=== PATIENT | female | born 1955 | race Caucasian/White ===

== ENCOUNTER 2019-10-25 16:33 | Outpatient (CLI) | payer OTHER, SELFPAY ==
--- NOTE | ~2019-10-25 | MM_ITS ---
EXAMINATION: MM screening [facility] BI w matt HISTORY: Screening TECHNIQUE: Craniocaudal and mediolateral oblique 3-D tomosynthesis images were obtained and synthetic 2-D images were generated. CAD analysis was submitted and interpreted. COMPARISON: Comparison to multiple prior studies sequentially, with oldest reviewed study dated 09/12. BREAST PARENCHYMAL COMPOSITION: There are scattered areas of fibroglandular density. FINDINGS: There is a developing asymmetry in the upper-outer quadrant of the left breast. The right b reast is stable without evidence for malignancy. IMPRESSION: 1. Developing left breast asymmetry. 2. Additional mammographic views and possible breast ultrasound are recommended. BI-RADS Category 0: Incomplete: Needs additional imaging evaluation. Reviewed, dictated and finalized at location A. IMPRESSION: 1. Developing left breast asymmetry. 2. Additional mammographic views and possible breast ultrasound are recommended . BI-RADS Category 0: Incomplete: Needs additional imaging evaluation.
== END 2019-10-25 16:34 | disposition home or self-care (01) ==
PROVIDERS: PCP Family Medicine; Visit Provider Family Medicine
DX: Z12.31 Encounter for screening mammogram for malignant neoplasm of breast (principal); R92.8 Other abnormal and inconclusive findings on diagnostic imaging of breast
CPT/HCPCS: 77063; 77067

== ENCOUNTER 2019-11-13 12:46 | Outpatient (CLI) | payer OTHER, SELFPAY ==
--- NOTE | ~2019-11-13 | MM_ITS ---
EXAMINATION: MM diagnostic [facility] LT w matt HISTORY: Left breast asymmetry on screening mammogram TECHNIQUE: Additional 3-D tomosynthesis images of the left breast were performed and synthetic 2-D im ages were generated. CAD analysis was submitted and interpreted. COMPARISON: 10/25/2019, 10/03/2018, 09/27/2017 FINDINGS: No persistent asymmetry is identified with spot compression views of the breast. There is a return to normal baseline fibroglandular appearance. IMPRESSION: 1. No mammographic evidence of malignancy. 2. Recommend routine screening mammography in one year. BI-RADS Category 1: Negative Reviewed, dictated and finalized at location A.
== END 2019-11-13 12:47 | disposition home or self-care (01) ==
LOC: ANHIMG 12:49
PROVIDERS: PCP Family Medicine; Visit Provider Family Medicine
DX: R92.8 Other abnormal and inconclusive findings on diagnostic imaging of breast (principal)
CPT/HCPCS: 77061; 77065; G0279

== ENCOUNTER 2019-12-31 17:31 | Outpatient (CLI) | payer OTHER, SELFPAY ==
--- NOTE | ~2019-12-31 | XR_ITS ---
EXAMINATION: XR knee LT min 4V EXAM DATE: 12/31/2019 18:05 INDICATION: Chronic left knee pain. TECHNIQUE: Left knee lateral, frontal AP, frontal PA tunnel, sunrise projections. Comparison is made to prior examination from 07/22/2014. FINDINGS: No evidence osteochondral defect or joint body in the left knee joint. There is moderate lateral tibiofemoral, mild patellofemoral compartment primary osteoarthritis. There is a small joint effusion. There are no acute fractures or dislocations identified. There is no subcutaneous gas. Th e soft tissue is unremarkable. There are no radiopaque foreign bodies. IMPRESSION: 1. Moderate left knee lateral tibiofemoral compartment osteoarthritis. 2. Small joint effusion. Reviewed, dictated and finalized at location A.
== END 2019-12-31 17:32 | disposition home or self-care (01) ==
PROVIDERS: PCP Family Medicine; Visit Provider Physician Assistant
DX: M25.562 Pain in left knee (principal); M17.12 Unilateral primary osteoarthritis, left knee; M25.462 Effusion, left knee
CPT/HCPCS: 73564

== ENCOUNTER 2020-12-29 14:44 | Outpatient (CLI) | payer OTHER, SELFPAY ==
--- NOTE | ~2020-12-29 | MM_ITS ---
EXAMINATION: MM screening [facility] BI w matt HISTORY: Screening TECHNIQUE: Craniocaudal and mediolateral oblique 3-D tomosynthesis images were obtained and synthetic 2-D images were generated. CAD analysis was submitted and interpreted. COMPARISON: Comparison to multiple prior studies sequentially, with oldest reviewed study dated 07/2015. BREAST PARENCHYMAL COMPOSITION: There are scattered areas of fibroglandular density. FINDINGS: There is no evidence of suspicious mass, calcification, or architectural distortion to sugg est malignancy in either breast. There has been no suspicious interval change. IMPRESSION: 1. No mammographic evidence of malignancy. 2. Recommend routine screening mammography in one year. BI-RADS Category 1: Negative Reviewed, dictated and finalized at location A.
--- NOTE | ~2020-12-29 | DEXA_ITS ---
Bone Density Report Name: Eulalia Lisa Age: 65 Sex: Female Ethnicity: White Date of : 1955 Indication: postmenopausal; hysterectomy; Referring Provider: Naif Ireland Study: Bone densitometry was performed. Exam Date: December 29, 2020 Accession number: [id number] Bone Density: Region BMD T-score Z-score Classification AP Spine (L1-L4) 0.965 -0.7 1.0 Normal Femoral Neck (Left) 0.588 -2.4 -0.9 Osteopenia Total Hip (Left) 0.762 -1.5 -0.3 Osteopenia Total Hip Bilateral Avg 0.761 -1.5 -0.3 Osteopenia Femoral Neck (Right) 0.606 -2.2 -0.7 Osteopenia Total Hip (Right) 0.758 -1.5 -0.3 Osteopenia World Health Organization criteria for BMD impression classify patients as: Normal (T-score at or above -1.0), Osteopenia (T-score between -1.0 and -2.5), or Osteoporosis (T-score at or below -2.5). 10-year Fracture Risk(1): Major Osteoporotic Fracture 11% Hip Fracture 1.8% Reported Risk Factors: [place] (), Neck BMD=0.588, BMI=29.7 (1) FRAX(R) Version 3.08. Fracture probability calculated for an untreated patient. Fracture probability may be lower if the patient has received treatment. Previous Exams: Region Exam Age BMD T-score BMD Change BMD Change Date g/cm2 vs Baseline vs Previous AP Spine(L1-L4) 12/29/2020 65 0.965 -0.7 -0.092(-8.7%)# -0.011(-1.2%)# 09/07/2012 56 0.977 -0.6 -0.081(-7.6%)# -0.081(-7.6%)# 01/04/2006 50 1.058 0.1 Total Hip(Left) 12/29/2020 65 0.762 -1.5 -0.227(-22.9%) -0.093(-10.9%) 09/07/2012 56 0.854 -0.7 -0.134(-13.6%) -0.134(-13.6%) 01/04/2006 50 0.988 0.4 Total Hip(Right) 12/29/2020 65 0.758 -1.5 -0.191(-20.2%) -0.094(-11.0%) 09/07/2012 56 0.851 -0.7 -0.098(-10.3%) -0.098(-10.3%) 01/04/2006 50 0.949 0.1 *Denotes significance at 95% confidence level, LSC for AP Spine = 0.022 g/cm2, LSC for Total Hip = 0.027 g/cm2 Clinical Information Provided by Patient: Has used the following medications: Calcium Has the following medical conditions: Hysterectomy Patient maximum height was 63 Menopause Age: 51 Drinks caffeinated beverages Onset of menses at age 16 Number of children 2 Impression: The patient has low bone mass, based on the Left Femoral Neck T-score. The patient has an estimated ten-year risk of hip fracture of 1.8% and an estimated ten-year risk of major fracture of 11%, based on the WHO FRAX algorithm. No significant bone loss was observed. Discussion: LORE
== END 2020-12-29 14:45 | disposition home or self-care (01) ==
LOC: ANHIMG 14:47
PROVIDERS: PCP Family Medicine; Visit Provider Family Medicine
DX: Z12.31 Encounter for screening mammogram for malignant neoplasm of breast (principal); Z78.0 Asymptomatic menopausal state; M85.851 Other specified disorders of bone density and structure, right thigh; M85.852 Other specified disorders of bone density and structure, left thigh
CPT/HCPCS: 77063; 77067; 77080

== ENCOUNTER 2022-01-19 15:52 | Outpatient (CLI) | payer OTHER, SELFPAY ==
--- NOTE | ~2022-01-19 | MM_ITS ---
EXAMINATION: MM screening [facility] BI w matt HISTORY: Screening TECHNIQUE: Craniocaudal and mediolateral oblique 3-D tomosynthesis images were obtained and synthetic 2-D images were generated. CAD analysis was submitted and interpreted. COMPARISON: Comparison to multiple prior studies sequentially, with oldest reviewed study dated 08/2016. BREAST PARENCHYMAL COMPOSITION: Breast composed of scattered areas of fibroglandular density FINDINGS: There is no evidence of suspicious mass, calcification, or architectural distortion to sugg est malignancy in either breast. There has been no suspicious interval change. IMPRESSION: 1. No mammographic evidence of malignancy. 2. Recommend routine screening mammography in one year. BI-RADS Category 1: Negative Reviewed, dictated and finalized at location A.
== END 2022-01-19 15:53 | disposition home or self-care (01) ==
PROVIDERS: PCP Emergency Medicine; Visit Provider Emergency Medicine
DX: Z12.31 Encounter for screening mammogram for malignant neoplasm of breast (principal)
CPT/HCPCS: 77063; 77067

== ENCOUNTER 2022-01-22 16:05 | Outpatient (CLI) | payer OTHER, SELFPAY ==
--- NOTE | ~2022-01-22 | US_ITS ---
EXAMINATION:US venous doppler LE LT INDICATION:Left leg edema TECHNIQUE: Multiple grayscale, color flow and Doppler images of the left lower extremity deep venous systems were obtained and reviewed. COMPARISON:No prior studies for comparison. FINDINGS: The common femoral, superficial femoral and popliteal veins demonstrate normal respiratory variation, augmentation and compressibility. Color flow is also seen within the posterior tibial, pe roneal, greater saphenous and profunda veins. There is a Ashby's cyst of the left popliteal fossa. IMPRESSION: 1: No lower extremity deep venous thrombosis. Reviewed, dictated and finalized at location A.
== END 2022-01-22 16:06 | disposition home or self-care (01) ==
LOC: ANHIMG 16:06
PROVIDERS: PCP Emergency Medicine; Visit Provider Emergency Medicine
DX: M79.89 Other specified soft tissue disorders (principal)
CPT/HCPCS: 93971

== ENCOUNTER → 2022-04-12 16:13 | Outpatient (CLI) | payer OTHER, SELFPAY ==
--- NOTE | ~2022-04-12 | XR_ITS ---
EXAMINATION: XR chest 2V DATE: 04/12/2022 16:23 INDICATION: One month of cough TECHNIQUE: PA and lateral views of the chest were obtained. COMPARISON: Chest radiograph dated 07/19/2008 FINDINGS: The lungs remain clear with no focal airspace opacities, pulmonary edema, pleural effusion or pneumot horax. The cardiomediastinal silhouette is normal. Mild thoracic spondylosis. IMPRESSION: 1. No acute cardiopulmonary disease. Reviewed, dictated and finalized at location B. FOOD ATTENDANT
== END ==
PROVIDERS: PCP Emergency Medicine; Visit Provider Emergency Medicine
DX: R05.3 Chronic cough (principal)
CPT/HCPCS: 71046

== ENCOUNTER → 2022-10-13 10:31 | Outpatient (CLI) | payer MEDICARE, SELFPAY ==
--- NOTE | ~2022-10-13 | US_ITS ---
US thyroid INDICATION: Nontoxic goiter TECHNIQUE: Real-time sonographic images of the thyroid gland were obtained. COMPARISON: No prior studies for comparison. FINDINGS: The right thyroid lobe measures 3.5 x 1.2 x 1.3 cm. The left thyroid lobe measures 3.2 x 1 x 1.2 cm. There is normal echotexture and echogenicity throughout the thyroid gland. In the left lob e there is a hypoechoic solid mass which is wider than tall, smoothly marginated measuring 10 x 8 x 7 mm, TR 4. Normal vascular flow is present. IMPRESSION: 1. Probable benign 1 cm left thyroid mass, TR 4. Follow-up ultrasound in 12 months recommended. Reviewed, dictated and finalized at location A. IMPRESSION: 1. Probable benign 1 cm left thyroid mass, TR 4. Follow-up ultrasound in 12 mo nt recommended.
== END ==
PROVIDERS: PCP Nurse Practitioner Family; Visit Provider Nurse Practitioner Family
DX: E04.9 Nontoxic goiter, unspecified (principal)
CPT/HCPCS: 76536

== ENCOUNTER 2022-11-30 09:35 | Outpatient (CLI) | payer MEDICARE, SELFPAY ==
[2022-11-30 13:05] LABS: Basophils Percent Auto 0.7 % (0.2-1.2); Eosinophils Absolute Auto 0.1 K/mm3 (0-0.3); Eosinophils Percent Auto 2.5 % (0-4.4); Hematocrit 41.8 % (37.0-47.0); Hemoglobin 13.9 g/dL (12.0-15.0); Immature Granulocyte Absolute 0.03 K/mm3 (0.00-0.031); Immature Granulocyte Percent A 0.7 % (0-0.5); Lymphocytes Absolute Auto 1.25 K/mm3 (0.9-3.2); Lymphocytes Percent Auto 28.2 % (18.3-44.2); Mean Corpuscular HGB Conc 33.3 g/dl (32-36); Mean Corpuscular Hemoglobin 33.3 pg (26-34); Mean Corpuscular Volume 100.2 fl (80-100); Mean Platelet Volume 11.5 fl (7.4-10.4); Monocytes Absolute Auto 0.5 K/mm3 (0.1-0.6); Monocytes Percent Auto 10.6 % (2.6-8.5); Neutrophils Absolute Auto 2.5 K/mm3 (1.3-6.7); Neutrophils Percent Auto 57.3 % (45.5-73.1); Platelet Count Result 223 k/mm3 (150-375); Red Blood Count 4.17 M/mm3 (4.2-5.4); Red Cell Distribution Width 12.8 % (11.5-14.5); White Blood Count 4.4 K/mm3 (4.5-10.0)
[2022-11-30 13:18] LABS: Alanine Aminotransferase 26 U/L (6-35); Albumin Level 4.3 g/dL (3.5-5.1); Alkaline Phosphatase 52 U/L (38-126); Anion Gap 8 mmol/L (8-16); Aspartate Amino Transferase 51 U/L (14-36); Bilirubin,Total 0.7 mg/dL (0.2-1.3); Blood Urea Nitrogen 15 mg/dL (7-17); Calcium 10.2 mg/dL (8.4-10.2); Carbon Dioxide 29 mmol/L (22-30); Chloride 102 mmol/L (98-107); Cholesterol 223 mg/dL (0-200); Estimated Glomerular Filt Rate > 60; Glucose 86 mg/dL (65-110); HDL Direct 61 mg/dL; Potassium 4.3 mmol/L (3.4-5.0); Sodium 139 mmol/L (137-145); Triglycerides 105 mg/dL (<150)
[2022-11-30 13:30] LABS: LDL Cholesterol Direct 119 mg/dL
[2022-11-30 13:40] LABS: Hemoglobin A1C 4.8 % (<5.7)
== END 2022-11-30 09:36 | disposition home or self-care (01) ==
PROVIDERS: PCP Nurse Practitioner Family; Visit Provider Nurse Practitioner Family
DX: I10 Essential (primary) hypertension (principal); Z13.220 Encounter for screening for lipoid disorders; Z13.29 Encounter for screening for other suspected endocrine disorder; Z13.21 Encounter for screening for nutritional disorder; Z13.1 Encounter for screening for diabetes mellitus; Z79.899 Other long term (current) drug therapy
CPT/HCPCS: 36415; 80053; 80061; 82306; 83036; 84443; 85025

== ENCOUNTER 2022-12-21 11:35 | Outpatient (NON) | payer MEDICARE, SELFPAY | END 2022-12-21 11:36 | disposition home or self-care (01) | PROVIDERS: PCP Nurse Practitioner Family; Visit Provider Nurse Practitioner | DX: L82.1 Other seborrheic keratosis (principal); D48.5 Neoplasm of uncertain behavior of skin | CPT/HCPCS: 88305 ==

== ENCOUNTER 2023-01-11 00:32 | Day surgery (SDC) | payer MEDICARE, SELFPAY ==
[2022-12-30 12:35] VITALS: BMI 32.8
[2023-01-11 09:44] VITALS: BP 158/81; PULSE 74; RESP 18; TEMP 36.6; O2SAT 100
[2023-01-11] MEDS: LACTATED RINGERS 1,000 ML 150 ML IV CONT (09:50)
--- NOTE | 2023-01-11 10:14 | PM.HPGS ---
History of Present Illness History of Present Illness Consent: Risks, benefits, and alternatives have been discussed and questions answered. Patient agrees to proceed with procedure. Chief complaint: neoplasm screening Narrative: Eulalia Lisa is a 67 year old female Presents for screening colonoscopy. Patient's current weight appetite and bowel movements are normal. Patient denies abdominal pain. Patient has had no bleeding. Family history is noncontributory. Previous exam in 2009 was unremarkable. Review of Systems Review of Systems: Review of systems noncontributory. [facility] Past Medical History Medical History Degenerative arthritis of knee, bilateral Valgus gonarthrosis Hypertension Obesity, unspecified Thyroid disorder Surgical History Surgical History H/O: hysterectomy Hx of hernia repair Family History Family History Sibling Hypertension Family history of lung cancer, Onset Age: 59 Mother Family history of lung cancer, Onset Age: 78 Family history of malignant neoplasm of breast in first degree relative, Onset Age: 78 Hyperthyroidism Father Family history of lymphoma Other No family history of cardiovascular disease Social History Social History Smoking status: Former smoker Tobacco type: cigarettes Alcohol intake: current Alcohol use details: occasional Substance use type: does not use Lack of Transportation: No Lack of Food: Never True Current Housing: I Have Housing Concerned About Future Housing: No Difficulty Paying Gas/Electric Bills: No Difficulty Paying for Meds: No Currently Unemployed: No Education: High School Diploma/GED Difficulty w/ Childcare or Family Care: No Living arrangements: with family Spiritual care concerns: No Meds Home Medications and Allergies Home Medications Medication Instructions Recorded Confirmed Type lutein 25 mg-zeaxanthin 5 mg 1 cap PO .qd 07/27/19 12/30/22 History capsule multivitamin 1 tablet PO DAILY 07/27/19 12/30/22 History cholecalciferol (vitamin D3) 50 50 mcg PO DAILY 04/07/21 12/30/22 History mcg (2,000 unit) chewable tablet B-complex with vitamin C 1 cap PO DAILY 10/13/22 12/30/22 History calcium carbonate 600 mg calcium 600 mg PO DAILY 10/13/22 12/30/22 History (1,500 mg) tablet (Calcium) alendronate 70 mg tablet 70 mg PO WEEKLY #13 tabs 10/21/22 12/30/22 Rx diltiazem HCl 180 mg 180 mg PO DAILY 12/30/22 12/30/22 History capsule,extended release 24 hr, controlled ferrous sulfate 325 mg (65 mg 325 mg PO 3XW 12/30/22 12/30/22 History iron) tablet levothyroxine 75 mcg tablet 75 mcg PO DAILY 12/30/22 12/30/22 History meloxicam 15 mg tablet 7.5 mg PO DAILY PRN Pain 12/30/22 12/30/22 History olmesartan 20 mg tablet 20 mg PO DAILY 12/30/22 12/30/22 History omega 8-khm-dhe-fish oil 1,200 mg 1 cap PO DAILY 12/30/22 12/30/22 History (144 mg-216 mg) capsule (Fish Oil) Allergies Allergy/AdvReac Type Severity Reaction Status Date / Time sulfamethizole Allergy Unknown Yeast Verified 01/11/23 09:41 infection Vital Signs Vital Signs - 24 hr 01/11/23 09:44 Temperature 97.9 F Pulse Rate 74 Respiratory Rate 18 Blood Pressure 158/81 H Pulse Oximetry 100 Oxygen Delivery Room Air Exam Narrative: Physical exam reveals patient to be alert. Vital signs stable. HEENT exam is unremarkable. Patient is anicteric. Lungs are clear to auscultation and percussion. Heart is without murmur or extra sounds. Abdomen bowel sounds are present soft nontender with no organomegaly. Digital external rectal exam normal. Assessment and Plan Assessment and plan (1) Encounter for screening colonoscopy: Code(s)
--- NOTE | 2023-01-11 10:58 | WPDANESEPPF ---
Anes - Initial Pre Proc Eval Procedure: Operation Date: 01/11/23 11:00 Proposed Procedures p Screening Colonoscopy - Karlo Mix MD Date/Time: 01/11/23 10:58 Surgeon: Karlo Mix MD Pre Op Diagnosis: neoplasm screening Patient Data Age: 67 Gender: F Height: 1.6 m Weight: 85.8 kg Last Vital Signs Temp 97.9 F 01/11/23 09:44 Pulse 74 01/11/23 09:44 Resp 18 01/11/23 09:44 BP 158/81 H 01/11/23 09:44 Pulse Ox 100 01/11/23 09:44 O2 Del Method Room Air 01/11/23 09:44 Allergies Allergy/AdvReac Type Severity Reaction Status Date / Time sulfamethizole Allergy Unknown Yeast Verified 01/11/23 09:41 infection Home Medications Medication Instructions Recorded Confirmed Type lutein 25 mg-zeaxanthin 5 mg 1 cap PO .qd 07/27/19 12/30/22 History capsule multivitamin 1 tablet PO DAILY 07/27/19 12/30/22 History cholecalciferol (vitamin D3) 50 50 mcg PO DAILY 04/07/21 12/30/22 History mcg (2,000 unit) chewable tablet B-complex with vitamin C 1 cap PO DAILY 10/13/22 12/30/22 History calcium carbonate 600 mg calcium 600 mg PO DAILY 10/13/22 12/30/22 History (1,500 mg) tablet (Calcium) alendronate 70 mg tablet 70 mg PO WEEKLY #13 tabs 10/21/22 12/30/22 Rx diltiazem HCl 180 mg 180 mg PO DAILY 12/30/22 12/30/22 History capsule,extended release 24 hr, controlled ferrous sulfate 325 mg (65 mg 325 mg PO 3XW 12/30/22 12/30/22 History iron) tablet levothyroxine 75 mcg tablet 75 mcg PO DAILY 12/30/22 12/30/22 History meloxicam 15 mg tablet 7.5 mg PO DAILY PRN Pain 12/30/22 12/30/22 History olmesartan 20 mg tablet 20 mg PO DAILY 12/30/22 12/30/22 History omega 5-tot-mes-fish oil 1,200 mg 1 cap PO DAILY 12/30/22 12/30/22 History (144 mg-216 mg) capsule (Fish Oil) Patient hx anesthesia problems: none Family hx anesthesia problems: none Results Review: All pre-operative results and documents have been reviewed as part of the pre-operative evaluation. [facility] Past Medical History Medical History Degenerative arthritis of knee, bilateral Valgus gonarthrosis Hypertension Obesity, unspecified Thyroid disorder Surgical History Surgical History H/O: hysterectomy Hx of hernia repair Family History Family History Sibling Hypertension Family history of lung cancer, Onset Age: 59 Mother Family history of lung cancer, Onset Age: 78 Family history of malignant neoplasm of breast in first degree relative, Onset Age: 78 Hyperthyroidism Father Family history of lymphoma Other No family history of cardiovascular disease Social History Social History Smoking status: Former smoker Tobacco type: cigarettes Alcohol intake: current Alcohol use details: occasional Substance use type: does not use Lack of Transportation: No Lack of Food: Never True Current Housing: I Have Housing Concerned About Future Housing: No Difficulty Paying Gas/Electric Bills: No Difficulty Paying for Meds: No Currently Unemployed: No Education: High School Diploma/GED Difficulty w/ Childcare or Family Care: No Living arrangements: with family Spiritual care concerns: No Anes - Eval Final PreProcedure Day of Procedure 01/11/23 10:58 Patient weight: obese Heart: regular rate and rhythm Lungs: clear to auscultation Airway: Mallampati scale class II Neurological: alert and oriented Last oral intake: >/= 8 hours ASA classification: II Emergent: no Anesthetic plan: proceed Anesthesia type and monitoring: general GIVS and standard monitoring Results Review: All pre-operative results and documents have been reviewed as part of the pre-operative evaluation. Informed Consent: The patient's anesthetic
[2023-01-11 11:10] VITALS: BP 132/75; PULSE 71; RESP 18; O2SAT 100
[2023-01-11 11:20] VITALS: BP 139/75; PULSE 63; RESP 21; O2SAT 100
[2023-01-11 11:30] VITALS: BP 156/93; PULSE 69; RESP 16; O2SAT 100
== END 2023-01-11 11:33 | disposition home or self-care (01) ==
PROVIDERS: PCP Nurse Practitioner Family; Visit Provider Internal Medicine Gastroenterology
PROC: 0DJD8ZZ Inspection of Lower Intestinal Tract, Via Natural or Artificial Opening Endoscopic (ICD-10-PCS; CPT 45378; principal; 2023-01-11 11:00)
DX: Z12.11 Encounter for screening for malignant neoplasm of colon (principal); K64.8 Other hemorrhoids; I10 Essential (primary) hypertension; E07.9 Disorder of thyroid, unspecified; E66.9 Obesity, unspecified; Z68.33 Body mass index [BMI] 33.0-33.9, adult; Z87.891 Personal history of nicotine dependence
CPT/HCPCS: G0121; J2704; J7120

== ENCOUNTER 2023-01-17 07:57 | Outpatient (CLI) | payer MEDICARE, SELFPAY ==
[2023-01-17 09:44] LABS: Urine Cotinine NEGATIVE
== END 2023-01-17 07:58 | disposition home or self-care (01) ==
LOC: ANHSURGERY 08:01
PROVIDERS: PCP Nurse Practitioner Family; Visit Provider Orthopaedic Surgery
DX: M17.12 Unilateral primary osteoarthritis, left knee (principal); Z01.818 Encounter for other preprocedural examination
CPT/HCPCS: 80307; 86850; 86900; 86901; 87081

== ENCOUNTER 2023-01-24 00:49 | Day surgery (SDC) | payer MEDICARE, SELFPAY ==
[2023-01-17 08:06] VITALS: BMI 33.7
--- NOTE | 2023-01-17 08:33 | PC.NURSE ---
Addendum entered by Katlyn Beltre RN 01/17/23 11:04: TAKES DILTIAZEM AT HS. DON'T TAKE AM OF SURGERY . ONLY TAKE LEVOTHYROXINE MORNING OF SURGERY Original Note: Report to the Outpatient Waiting Room, entrance under the green pavilion located off [facility], at time __0600 on date 01/24/23 . Planned Procedure Time: ___729 . Time changes happen often and if your time is changed the preop area will call you the afternoon before. - You and your visitor will be asked to self-screen and do not enter if you have any COVID symptoms. - A mask is optional within the hospital at this time. Patients may have clear liquids (water, carbonated beverages, clear teas, apple juice) until 3 hours prior to surgery with a maximum of 20 ounces. - No food from midnight until time of surgery - Infants may have breast milk until 4 hours before surgery, formula 6 hours prior to surgery. - Children will be allowed to drink immediately following surgery. If applicable, please bring a bottle or sippy cup to assist with drinking. Juice, water, soda, and popsicles are readily available. For infants on formula, please bring formula the day of surgery. Pacifiers are allowed. Take the following medications with a SIP of water the morning of surgery: __DILTIAZEM,LEVOTHYROXINE DO NOT STOP ANY OF YOUR OTHER PRESCRIPTION MEDICATIONS PRIOR TO SURGERY ?EXCEPT THE FOLLOWING Medications to discontinue per physician ___ALL VITAMINS AND SUPPLEMENTS 3 DAYS PRE OP LAST DOSE 01/20/23. PT STATES HOLD ALENDRONATE 7 DAYS PRE OP.PER DR MARES LAST DOSE 01/16/23 Please no make-up, nail malian, hairspray, perfume, deodorant, or body powder the day of surgery. No jewelry (including any body piercings) or valuables the day of surgery, leave them at home. Please take a shower or bath the night before, or the morning of, surgery with an antibacterial soap. Wear comfortable, loose fitting clothing. Children are encouraged to wear pajamas. - Jewelry must be removed prior to entering the operating room. Rings and piercings that are not removed may be cut off. - The hospital will not accept responsibility for valuables. - Please leave all valuables, including medications, at home the day of surgery. If you are going home after surgery, a licensed train driver must drive you home. - NO public transportation without another adult if you receive anesthesia. - We recommend that an adult stay with you for 24 hours following discharge. - We also recommend that you do not drive, make important decision, drink alcoholic beverages, or take any drugs that were not prescribed by your health care provider for at least 24 hours after your discharge time. For Pediatric surgeries, we recommend two adults accompany the child home. Follow any additional instructions given to you from your surgeon. If you or anyone in your household have experienced Covid symptoms in the past week, please notify your surgeon or the nurse liaison at the phone number below for possible testing. VERBAL AND WRITTEN instructions given to __PATIENT and asked if any additional questions and then verbalized understanding. Patient advised to call surgeon office or pre surgery nurse liaison [phone] if any additional questions.
[2023-01-17 08:54] VITALS: BP 147/68; PULSE 63; RESP 18; TEMP 36.5; O2SAT 100
[2023-01-24] VITALS (12 sets, daily range): BP systolic 118–144; BP diastolic 53–88; PULSE 66–87; RESP 12–16; TEMP 35.6–37.4; O2SAT 97–100
--- NOTE | ~2023-01-24 | XR_ITS ---
EXAMINATION: XR_[id number]_CR DATE: 01/24/2023 10:34 INDICATION: Postoperative evaluation following left total knee arthroplasty. TECHNIQUE: Anteroposterior and lateral views of the left knee were obtained. COMPARISON: None. FINDINGS: Left total knee arthroplasty with patellar resurfacing appears well seated and in near anatomic align ment. No fractures identified. Expected postoperative subcutaneous and intra-articular gas. IMPRESSION: 1. Left total knee arthroplasty, negative for postoperative purposes. Reviewed, dictated and finalized at location A. E CLERK
[2023-01-24] MEDS: ACETAMINOPHEN 500 MG TABLET 1000 MG PO (06:30)
[2023-01-24] MEDS: LACTATED RINGERS 1,000 ML 30 ML IV CONT ×2 (06:30→10:20)
[2023-01-24] MEDS: TRANEXAMIC ACID 1,000MG/ISO100 1,000 MG/100 ML BAG 200 MG IVPB (06:45)
--- NOTE | 2023-01-24 07:07 | WPDHPUPDATE1 ---
History and Physical Update Update Date/Time: 01/24/23 07:07 History and Physical has been reviewed, including an updated exam of the patient. There are NO changes in the patient's condition. Risks, benefits, and alternatives have been discussed and questions answered. Patient agrees to proceed with procedure.
--- NOTE | 2023-01-24 07:09 | WPDANESEPPF ---
Anes - Initial Pre Proc Eval Procedure: Operation Date: 01/24/23 07:30 Proposed Procedures p Left Total Knee Arthroplasty - Trevor Sanchez MD Date/Time: 01/24/23 07:09 Surgeon: Trevor Sanchez MD Pre Op Diagnosis: oa left knee Patient Data Age: 67 Gender: F Height: 1.6 m Weight: 86.3 kg Last Vital Signs Temp 36.5 C 01/17/23 08:54 Pulse 63 01/17/23 08:54 Resp 18 01/17/23 08:54 BP 147/68 H 01/17/23 08:54 Pulse Ox 100 01/17/23 08:54 O2 Del Method Room Air 01/17/23 08:54 Allergies Allergy/AdvReac Type Severity Reaction Status Date / Time sulfamethizole Allergy Unknown Yeast Verified 01/17/23 08:07 infection Home Medications Medication Instructions Recorded Confirmed Type lutein 25 mg-zeaxanthin 5 mg 1 cap PO .qd 07/27/19 01/17/23 History capsule multivitamin 1 tablet PO DAILY 07/27/19 01/17/23 History cholecalciferol (vitamin D3) 50 50 mcg PO DAILY 04/07/21 01/17/23 History mcg (2,000 unit) chewable tablet B-complex with vitamin C 1 cap PO DAILY 10/13/22 01/17/23 History calcium carbonate 600 mg calcium 600 mg PO DAILY 10/13/22 01/17/23 History (1,500 mg) tablet (Calcium) alendronate 70 mg tablet 70 mg PO WEEKLY #13 tabs 10/21/22 01/17/23 Rx diltiazem HCl 180 mg 180 mg PO QPM 12/30/22 01/17/23 History capsule,extended release 24 hr, controlled ferrous sulfate 325 mg (65 mg 325 mg PO 3XW 12/30/22 01/17/23 History iron) tablet levothyroxine 75 mcg tablet 75 mcg PO DAILY 12/30/22 01/17/23 History olmesartan 20 mg tablet 20 mg PO QPM 12/30/22 01/17/23 History omega 6-jtq-kjk-fish oil 1,200 mg 1 cap PO DAILY 12/30/22 01/17/23 History (144 mg-216 mg) capsule (Fish Oil) rivaroxaban 10 mg tablet (Xarelto) 10 mg PO DAILY PE prophylaxis s/p 01/13/23 01/17/23 Rx joint surgery #14 tabs acetaminophen 650 mg 1,300 mg PO Q12H PRN Pain 01/17/23 01/17/23 History tablet,extended release (Tylenol Arthritis Pain) meloxicam 7.5 mg tablet 7.5 mg PO PRN PRN Pain 01/17/23 01/17/23 History Patient hx anesthesia problems: none Family hx anesthesia problems: none Results Review: All pre-operative results and documents have been reviewed as part of the pre-operative evaluation. [facility] Past Medical History Medical History Degenerative arthritis of knee, bilateral Valgus gonarthrosis Hypertension Obesity, unspecified Thyroid disorder Surgical History Surgical History H/O: hysterectomy Hx of hernia repair Family History Family History Sibling Hypertension Family history of lung cancer, Onset Age: 59 Mother Family history of lung cancer, Onset Age: 78 Family history of malignant neoplasm of breast in first degree relative, Onset Age: 78 Hyperthyroidism Father Family history of lymphoma Other No family history of cardiovascular disease Social History Social History Smoking packs per day: 0.5 Smoking cigarettes per day: 10.0 Years smoked: 10 Smoking pack-years: 5.00 Smoking status: Former smoker Tobacco type: cigarettes Smoking end date: 03/21/92 Additional smoking assessment comments: DENIES ANY FORM OF TOBACCO USE Alcohol intake: current Drinks per week: 4 Alcohol use details: occasional Substance use type: does not use Lack of Transportation: No Lack of Food: Never True Current Housing: I Have Housing Concerned About Future Housing: No Difficulty Paying Gas/Electric Bills: No Difficulty Paying for Meds: No Currently Unemployed: No Education: High School Diploma/GED Difficulty w/ Childcare or Family Care: No Living arrangements: alone Occupation/Education: retired Spiritual care concerns: No Anes - Eval Final PreProcedure Day of
[2023-01-24] MEDS: ceFAZolin 2 GM/D5W 50 ML 2 GM/50 ML BAG IVPB ×2 (07:34→16:00)
--- NOTE | 2023-01-24 07:50 | WPDANESPNB ---
Anes - Peripheral Nerve Block Date/Time: 01/24/23 07:50 I have discussed with the patient/family/POA the placement of a peripheral nerve block for post-operative pain management, including associated risks, benefits, complications, and side effects. Alternative methods of post-operative analgesia were detailed. Questions were solicited and answers provided to the satisfaction of the patient/family/POA. Time-Out: A pre-procedural Time-Out was completed immediately before starting the procedure and confirmed: Patient Identification, Site, Procedure, Patient Position and the Availability of Requisite Equipment. Clinical Indications: Acute post-operative pain management requested by the operative surgeon. Nerve Block Insertion Note Anes-nerve block: adductor canal left Patient position: supine Skin prep: chlorhexidine Needle: 22 gauge, stimulating, insulated echogenic needle. Needle length: 80 mm Technique: ultrasound Technique comment: mid2mg [id number] Injectate: bupivacaine 0.5% with epi 5 mcg/ml (30ml no epi) and dexamethasone (mg) (4) Observations: tolerated well Complications: none Procedure start time:: 723 Procedure end time:: 730
[2023-01-24] MEDS: GENTAMICIN BONE CEMENT REFOBACIN 1 EACH TOPICAL (09:05)
[2023-01-24] MEDS: ceFAZolin SODIUM 1 GM VIAL IV PUSH (09:40)
--- NOTE | 2023-01-24 09:55 | W.PM.PROC2 ---
Procedure Note - Detailed Date of Procedure 01/24/23 Pre-op Diagnosis oa left knee Post-op Diagnosis Same Procedure Performed Left total knee replacement Surgeon Trevor Sanchez MD Corrugated Fastener Driver Jose De Jesus [facility] Anesthesia General and Regional Description of Procedure The patient was identified and proper site identified. In the preop holding area the anesthesia team performed a left-sided sub sartorial block after which the patient was taken to the operating room and transferred to the OR table positioning supine taking care to pad the torso and extremities. After general anesthetic induction and intubation a nonsterile tourniquet was placed high on the left thigh. The left lower extremity was prepped and draped in the usual sterile fashion. The extremity was exsanguinated and with the knee flexed tourniquet was inflated to 300 mmHg remaining up for approximately 72 minutes. An anterior midline incision was made and a modified medial parapatellar approach was used. Infra and suprapatellar fat pads were excised. Patella was resected leaving 15 mm thickness and prepared for the size 32 round three peg component. Using the intramedullary guide the distal femur was cut in the proper orientation for the size six femoral component. Using the extramedullary guide the tibia was cut perpendicular to the long axis protecting collateral ligaments and popliteal structures. It was sized to a 6 M. Flexion and extension gaps were balanced. Trial reduction was undertaken and the weight-bearing line was noted to passed through the center of the joint. Proximal tibia was drilled and punched in the proper orientation for the real component. Trial components were removed. The bone surfaces were washed with pulsatile lavage and dried. The real components were cemented simultaneously. The knee was held in extension and the patella held clamped until the cement had cured. Excess cement was removed from the joint. After trialing it was determined that the 12 mm insert gave full range of motion from 0-120 degrees of flexion and the patella tracked in the femoral groove with no lift-off. After final lavage the joint the real size 12 insert was secured. A Betadine and saline wash was placed into the wound and allowed to sit for approximately 3 minutes and then evacuated. Periarticular tissues were infiltrated with 60 cc of the arthroplasty solution. Surgicel powder was applied into the wound during the closure. The extensor mechanism was repaired with #2 Vicryl suture and 0 looped PDS suture. Subcu was reapproximated with 2. Vicryl, 2-0 Monocryl, 2-0 Quill, and tissue adhesive for the skin. A sterile dressing was applied. She tolerated the procedure well, was awakened and extubated, transferred to the bed and was taken to recovery area in stable condition. There were no known intraoperative complications. Perioperative antibiotics were administered. Estimated Blood Loss 150 Tourniquet Time 72 Drains No Packing No Pathology None sent Complications No immediate complications Condition Stable Disposition PACU [facility] Billing Surgery - Charge Forward: Surgery Billing ([id number])
[2023-01-24] MEDS: fentaNYL CITRATE INJ (*CRX) 100 MCG/2 ML VIAL 25 MCG IV PUSH ×4 (10:26→10:47)
--- NOTE | 2023-01-24 11:40 | PC.NURSE ---
This patient, Eulalia Lisa, was admitted to 3 Med Surg Room 303-01. Patient/family oriented to hospital policies and general routines including ID bracelet, bed and alarms, visiting hours, pain management, procedures, bathroom and other care routines, personal items, smoking policy, room service/diet, and visiting hours. Information on how to activate the Rapid Response Team has been discussed. Patient/Family are encouraged to report perceived risks to care and to ask questions if they do not understand what they are told or what they should do.
[2023-01-24] MEDS: KETOROLAC 15 MG/ML VIAL (*BKC) IV PUSH ×2 (12:21→17:31)
[2023-01-24] MEDS: SODIUM CHLORIDE 0.9% IV 1,000 ML 125 ML IV CONT (12:24)
[2023-01-24] MEDS: oxyCODONE/ACETAMINOPHEN (*CRX) 5-325 MG TABLET 1 TABLET PO ×3 (13:17→21:15)
[2023-01-24] MEDS: SENNA/DOCUSATE SODIUM TABLET 2 TAB PO (17:30)
[2023-01-24] MEDS: OLMESARTAN MEDOXOMIL 20 MG TABLET PO (17:31)
[2023-01-24] MEDS: dilTIAZem HCL CD 180 MG CAP.24HR PO (17:31)
[2023-01-24] MEDS: FAMOTIDINE 20 MG TABLET PO (21:15)
[2023-01-25] VITALS: BP 105/46; PULSE 70; RESP 16; TEMP 37.2; O2SAT 99
[2023-01-25] MEDS: ceFAZolin 2 GM/D5W 50 ML 2 GM/50 ML BAG IVPB ×2 (00:23→07:34)
[2023-01-25] MEDS: KETOROLAC 15 MG/ML VIAL (*BKC) IV PUSH ×2 (00:24→05:43)
[2023-01-25] MEDS: oxyCODONE/ACETAMINOPHEN (*CRX) 5-325 MG TABLET 1 TABLET PO ×3 (00:24→08:42)
[2023-01-25 04:00] VITALS: BP 118/72; PULSE 73; RESP 16; TEMP 36.8; O2SAT 97
[2023-01-25] MEDS: LEVOTHYROXINE SODIUM 75 MCG TABLET PO (05:43)
[2023-01-25 07:13] LABS: Immature Granulocyte Absolute 0.08 K/mm3 (0.00-0.031); Immature Granulocyte Percent A 0.7 % (0-0.5); Lymphocytes Absolute Auto 0.61 K/mm3 (0.9-3.2); Lymphocytes Percent Auto 5.1 % (18.3-44.2); Mean Corpuscular HGB Conc 33.3 g/dl (32-36); Mean Corpuscular Hemoglobin 33.1 pg (26-34); Mean Corpuscular Volume 99.3 fl (80-100); Mean Platelet Volume 11.6 fl (7.4-10.4); Monocytes Absolute Auto 1.2 K/mm3 (0.1-0.6); Monocytes Percent Auto 9.6 % (2.6-8.5); Neutrophils Absolute Auto 10.2 K/mm3 (1.3-6.7); Neutrophils Percent Auto 84.6 % (45.5-73.1); Platelet Count Result 188 k/mm3 (150-375); Red Blood Count 3.02 M/mm3 (4.2-5.4); Red Cell Distribution Width 12.7 % (11.5-14.5)
[2023-01-25 07:25] LABS: Anion Gap 4 mmol/L (8-16); Blood Urea Nitrogen 18 mg/dL (7-17); Calcium 8.3 mg/dL (8.4-10.2); Carbon Dioxide 27 mmol/L (22-30); Chloride 103 mmol/L (98-107); Estimated CRCL calculation 72 ml/min; Estimated Glomerular Filt Rate > 60; Glucose 126 mg/dL (65-110); Potassium 4.3 mmol/L (3.4-5.0); Sodium 134 mmol/L (137-145)
--- NOTE | 2023-01-25 07:59 | WPDANESPN ---
Anes - Prog Note Post-Op Date/Time: 01/25/23 07:59 Cardiovascular status: normal Respiratory status: normal Airway patency: baseline Mental status: baseline Post-Op hydration status: normal Vital Signs: Last Vital Signs Temp 36.8 C 01/25/23 04:00 Pulse 73 01/25/23 04:00 Resp 16 01/25/23 04:00 BP 118/72 01/25/23 04:00 Pulse Ox 97 01/25/23 04:00 O2 Del Method Room Air 01/24/23 19:54 O2 Flow Rate 10 01/24/23 10:30 Pain Score (VAS): 0 I/O: Intake & Output 01/24/23 01/24/23 01/25/23 15:59 23:59 07:59 Intake Total 1440 690 450 Balance 1440 690 450 Laboratory Tests 01/25/23 06:20 01/25/23 06:20 01/25/23 06:20 WBC 12.0 H RBC 3.02 L Hgb 10.0 L D Hct 30.0 L MCV 99.3 MCH 33.1 MCHC 33.3 RDW 12.7 Plt Count 188 MPV 11.6 H Immature Gran % (Auto) 0.7 H Neut % (Auto) 84.6 H Lymph % (Auto) 5.1 L [place] % (Auto) 9.6 H Eos % (Auto) 0.0 Baso % (Auto) 0.0 L Lymph # (Auto) 0.61 L [place] # (Auto) 1.2 H Eos # (Auto) 0.0 Baso # (Auto) 0.0 Abs Immat Gran (auto) 0.08 H Absolute Neuts (auto) 10.2 H Absolute Nucleated RBC 0.0 Nucleated RBC % 0.0 Sodium 134 L Potassium 4.3 Chloride 103 Carbon Dioxide 27 Anion Gap 4 L BUN 18 H Creatinine 0.70 Estim Creat Clear Calc 72 Estimated GFR > 60 Glucose 126 H Calcium 8.3 L Post-procedural complaints: none Patient Feedback: Patient satisfied with anesthetic care.
[2023-01-25 08:00] VITALS: BP 110/53; PULSE 77; RESP 18; TEMP 36.3; O2SAT 100
[2023-01-25] MEDS: CALCIUM CARBONATE (OSCAL) 500 MG TABLET PO (08:41)
[2023-01-25] MEDS: CHOLECALCIFEROL 1,000 UNITS TABLET 2000 UNITS PO (08:41)
[2023-01-25] MEDS: VITAMIN B COMPLEX/VIT C CAPSULE 1 EACH PO (08:42)
[2023-01-25] MEDS: FAMOTIDINE 20 MG TABLET PO (08:42)
[2023-01-25] MEDS: RIVAROXABAN 10 MG TABLET PO (08:42)
[2023-01-25] MEDS: MULTIVITAMINS THERAPEUTIC TAB (*BKC) 1 TABLET PO (08:42)
--- NOTE | 2023-01-25 09:20 | PM.DS ---
DS: Admitting Diagnosis Discharge Date January 25, 2023 Admitting Diagnosis Osteoarthritis left knee DS: Discharge Diagnosis Discharge Diagnosis (1) History of left knee replacement: Code(s): Z96.652 - Presence of left artificial knee joint Status: Resolved Assessment and Plan: Patient has done very well with surgery after left knee replacement. She you be discharged home today. Follow-up will be with me in the office in about two weeks. Does have multiple skin tears for fragile skin which she is going to dress with island dressings until these heal up. DS: Summary Hospital Course Hospital Course: Spine surgery she was admitted to the floor. She began therapy and made excellent progress and is being discharged home on postop day one. Status at Discharge Functional status at discharge: uses cane/walker Overall status at discharge: patient is not back to baseline Time Spent with Patient Time attestation: Total time spent providing and/or coordinating discharge services: Exam Const: General: cooperative, comfortable and no acute distress HENMT: Head: normal to inspection Resp: Effort & Inspection: normal respiratory effort and able to speak in complete sentences GI: Inspection: normal to inspection Extrem: Other: Left knee incision dry. Multiple small skin tears on thigh and lower leg dressed with island dressings. Moderate bruising below the knee. Neurovascular status unremarkable left lower extremity. Radiology Reports: Comments: EXAMINATION: XR_[id number]_CR DATE: 01/24/2023 10:34 INDICATION: Postoperative evaluation following left total knee arthroplasty. TECHNIQUE: Anteroposterior and lateral views of the left knee were obtained. COMPARISON: None. FINDINGS: Left total knee arthroplasty with patellar resurfacing appears well seated and in near anatomic alignment.? No fractures identified. Expected postoperative subcutaneous and intra-articular gas. IMPRESSION: 1. Left total knee arthroplasty, negative for postoperative purposes. Reviewed, dictated and finalized at location A. BARKER OPERATOR DS: Data Data Completed and Pending Labs on day of discharge: Labs from last 24 hours 01/25/23 06:20 WBC 12.0 H RBC 3.02 L Hgb 10.0 L D Hct 30.0 L MCV 99.3 MCH 33.1 MCHC 33.3 RDW 12.7 Plt Count 188 MPV 11.6 H Immature Gran % (Auto) 0.7 H Neut % (Auto) 84.6 H Lymph % (Auto) 5.1 L [place] % (Auto) 9.6 H Eos % (Auto) 0.0 Baso % (Auto) 0.0 L Lymph # (Auto) 0.61 L [place] # (Auto) 1.2 H Eos # (Auto) 0.0 Baso # (Auto) 0.0 Abs Immat Gran (auto) 0.08 H Absolute Neuts (auto) 10.2 H Absolute Nucleated RBC 0.0 Nucleated RBC % 0.0 Sodium 134 L Potassium 4.3 Chloride 103 Carbon Dioxide 27 Anion Gap 4 L BUN 18 H Creatinine 0.70 Estim Creat Clear Calc 72 Estimated GFR > 60 Glucose 126 H Calcium 8.3 L Discharge Plan Discharge Patient Disposition: Home, Self-Care Discharge Instructions: 3 times daily for 20 minutes each time, reclining in bed with ice packs over the incision and a pillow underneath the calf of the affected leg, not under the knee. Your wound is glued so it is okay to remove the dressing, get into the shower and get the wound wet in two days. Be sure to read through all the information that came from a my office and the hospital. Most of the answers you will need can be found that material. Call the office with any questions that you cannot find answers to, or concerns you may have. After the Xarelto is completed, start taking one coated 325 mg aspirin daily and do this for four more weeks. Please call [facility] at as soon as possible to arrange for/verify your follow-up appointment to be seen in 2 weeks. Also, call the office with any orthopedic/surgical related questions prior to foll
== END 2023-01-25 11:31 | disposition home or self-care (01) ==
LOC: ANHSURGERY 09:50 → ANH3MEDSUR 11:55
PROVIDERS: PCP Nurse Practitioner Family; Visit Provider Orthopaedic Surgery
PROC: (CPT 27447; principal; 2023-01-24 07:30)
DX: M17.12 Unilateral primary osteoarthritis, left knee (principal); G89.18 Other acute postprocedural pain; I10 Essential (primary) hypertension; E07.9 Disorder of thyroid, unspecified; Z87.891 Personal history of nicotine dependence
CPT/HCPCS: 27447; 64447; 36415; 73560; 80048; 80307; 85025; 86850; 86900; 86901; 87081; 97110; 97116; 97161; 97165; 97530; 97535; A9270; C1713; J0171; J0690; J1100; J1885; J2250; J2270; J2371; J2405; J2704; J2795; J3010; J7030; J7120

== ENCOUNTER 2023-02-16 10:06 | Outpatient (CLI) | payer MEDICARE, SELFPAY ==
--- NOTE | ~2023-02-16 | US_ITS ---
EXAMINATION:US venous doppler LE LT INDICATION:Left knee pain TECHNIQUE: Multiple grayscale, color flow and Doppler images of the left lower extremity deep venous systems were obtained and reviewed. COMPARISON:Ultrasound dated 01/22/2022 FINDINGS: The common femoral, superficial femoral and popliteal veins demonstrate normal respiratory variation, augmentation and compressibility. Color flow is also seen within the posterior tibial, pe roneal, greater saphenous and profunda veins. Complicated Ashby's cyst reidentified. IMPRESSION: 1: No lower extremity deep venous thrombosis. Reviewed, dictated and finalized at location B. ASSISTANT
== END 2023-02-16 10:07 | disposition home or self-care (01) ==
PROVIDERS: PCP Nurse Practitioner Family; Visit Provider Orthopaedic Surgery
DX: M79.602 Pain in left arm (principal)
CPT/HCPCS: 93971

== ENCOUNTER 2023-04-04 07:00 | Outpatient (NON) | payer MEDICARE, SELFPAY | END 2023-04-04 07:01 | disposition home or self-care (01) | LOC: ANHLAB 04-06 11:09 | PROVIDERS: PCP Nurse Practitioner Family; Visit Provider Nurse Practitioner | DX: D22.5 Melanocytic nevi of trunk (principal) | CPT/HCPCS: 88305 ==

== ENCOUNTER 2023-04-14 09:40 | Outpatient (CLI) | payer MEDICARE, SELFPAY ==
--- NOTE | ~2023-04-14 | MM_ITS ---
EXAMINATION: MM screening [place] BI w matt HISTORY: Screening mammogram, family history of breast cancer in her mother. TECHNIQUE: Craniocaudal and mediolateral oblique 3-D tomosynthesis images were obtained and synthetic 2-D images were generated. CAD analysis was submitted and interpreted. COMPARISON: 01/19/2022, 12/29/2020, 11/13/2019, 10/25/2019 BREAST PARENCHYMAL COMPOSITION: There are scattered areas of fibroglandular density. FINDINGS: No suspicious mass, calcification, or architectural distortion are identified in either rosalba ast to suggest malignancy. There has been no suspicious interval change. IMPRESSION: 1. No mammographic evidence of malignancy. 2. Recommend routine screening mammography in one year. BI-RADS Category 1: Negative Reviewed, dictated and finalized at location A. HER GOODS II ASSEMBLER
== END 2023-04-14 09:41 | disposition home or self-care (01) ==
LOC: ANHIMG 09:44
PROVIDERS: PCP Nurse Practitioner Family; Visit Provider Nurse Practitioner Family
DX: Z12.31 Encounter for screening mammogram for malignant neoplasm of breast (principal)
CPT/HCPCS: 77063; 77067

== ENCOUNTER 2023-04-28 09:00 | Outpatient (RCR) | payer MEDICARE, SELFPAY ==
--- NOTE | 2023-01-31 11:41 | OPREHPOC ---
Outpatient Therapy Plan of Care This is a Multidisciplinary Plan of Care that may contain components documented by all disciplines (PT, OT, and ST.) PT Problem 1 PT Problem #1 Knowledge Deficit PT Goal 1 Goal 1* indep with HEP 2* correct gait pattern with assistive device PT Problem 2 PT Problem #2 Pain PT Goal 1 Goal 1* pt report pain at worst of 3/10 2* pt report taking one hydrocodone/day 3* pt report knee pain does not awaken her from sleeping PT Problem 3 PT Problem #3 Impaired Range of Motion PT Goal 1 Goal improve L knee active ROM to improve mobility, transfer sit/stand and stairs: 1* sitting extension 0' 2* sitting flexion 110' PT Problem 4 PT Problem #4 Impaired Functional Mobility PT Goal 1 Goal 1* pt transfer sit/stand from 18 seat, 5 reps without use of UE's 2* 2 minute walking test distance of 400' 3* 4 steps with one hand railing and alternating step pattern 4* 5 reps sit/stand time of 15 seconds 5* pt report with home activity, standing/walking tolerance of 45 minutes
--- NOTE | 2023-01-31 11:41 | PTOPEVAL1 ---
Assessment and note entered by Blanca Monte, PT Evaluation Information Assessment Status Evaluation Diagnosis s/p L TKR Onset 01-24-23 Subjective Information since surgery, using walker all time, feel comfortable getting around in home; doing exercises from hospital--lying down and sitting; using ice and elevation; ACTIVITY: live alone, one level home, one entry step from garage; have walk in shower with seat built in and grab bars; indep bathing and dressing; retired clinical secretary; Prior to surgery-- did not require any assistance; Reported Pain Level Pain Score Self Report Additional Pain Score Comments pain range in past few days 0-6/10; increase pain: up/walking 20 minutes; awaken from sleep about 1x/night decrease pain: taking oxycodone every 2x/day; also taking arthritis tylenol reports skin is tender and have sores over leg from bandages/tape over knee Assessment PT Clinical Summary Eulalia is 1 week s/p L TKR. She has been doing the exercises at home and using a regular walker. She lives alone and daughter is assisting her PRN since surgery. Prior to surgery, she was active and is retired. With the evaluation: she has decreased strength of L LE; active sitting L knee ROM is (-10') to 85 5 reps sit/stand time is 22 seconds, with use of 1 UE; 2 minute walking test distance of 300' with wheeled walker; on 4 steps, required both hand rails, single step pattern. Skilled PT services are indicated to increase L knee strength and ROM, improve mobility and gait skills, with education for HEP and progression of gait to lesser device and modalities PRN for pain control. Plan of Care Interventions Electrical Stimulation,Hot Pack/Cold Pack,Manual Therapy,Neuro Re-education,Patient Education,Therapeutic Activities,Therapeutic Exercise,Other PT Services Indicated Yes Treatment Frequency and 2x/wk for 4 weeks Duration These treatments will address the objective and functional deficits as defined above. Th
--- NOTE | 2023-03-02 11:19 | PTOPPROG ---
Assessment and note entered by José Feliciano, PT, DPT Evaluation Information Assessment Status Progress Diagnosis s/p L TKR Onset 01-24-23 Subjective Information Pt states overall her knee is doing well. She states sleeping has really improved and her knee is not really as sore in anymore. Pt reports 85% improvement in overall symptoms. She states she would like to continue progressing her strength, standing tolerance, and walking tolerance. Assessment PT Clinical Summary Eulalia presents to therapy today for her progress report following 9 visits of skilled therapy to treat the deficits related to a L TKA on 01/24/23. Today she demonstrates improved gait, pain reports , and improved knee flexion. She continues to lack ~10 deg from terminal knee extension passively, affecting her gait and standing tolerance. Continuation of skilled therapy services are indicated to improve the remaining deficits noted above, to improve functional mobility, and to return to PLOF. Plan of Care Interventions Electrical Stimulation,Gait Training,Hot Pack/Cold Pack,Intermittent Compression,Manual Therapy, Neuro Re-education,Patient/Caregiver Educati, Therapeutic Activities,Therapeutic Exercise,Other PT Services Indicated Yes Treatment Frequency and 1x/wk for 4 visits Duration These treatments will address the objective and functional deficits as defined above. The patient will be advanced safely and appropriately in order for the patient to progress towards his/her prior level of function. Additional exercises will be introduced and as well as a comprehensive home exercise program upon discharge, if needed, ?to ensure carryover of functional gains achieved in the clinic. This treatment plan has been reviewed and agreement upon by the patient.
--- NOTE | 2023-03-28 09:56 | PTOPPROG ---
Assessment and note entered by José Feliciano, PT, DPT Evaluation Information Assessment Status Progress Diagnosis s/p L TKR Onset 01-24-23 Subjective Information Pt states things are going really well. She states she has been going to the gym about 2-3 times a week. She states she is getting around much better . Pt reports 85% improvement in overall symptoms. Assessment PT Clinical Summary Eulalia presents to therapy today for her progress report following 12 visits of skilled therapy to treat the deficits related to a L TKA on 01/24/23. Today she making good progress towards her therapy goals and has met a majority of them. Her greatest limitation at this time is still active and passive extension. Lack of terminal knee extension is negative affecting her giat and standing tolerance. Continuation of skilled therapy services are indicated to improve the remaining deficits noted above, to improve functional mobility, and to return to PLOF. Plan of Care Interventions Electrical Stimulation,Gait Training,Hot Pack/Cold Pack,Intermittent Compression,Manual Therapy, Neuro Re-education,Patient/Caregiver Educati, Therapeutic Activities,Therapeutic Exercise,Other PT Services Indicated Yes Treatment Frequency and 1x/wk for 4 visits Duration These treatments will address the objective and functional deficits as defined above. The patient will be advanced safely and appropriately in order for the patient to progress towards his/her prior level of function. Additional exercises will be introduced and as well as a comprehensive home exercise program upon discharge, if needed, ?to ensure carryover of functional gains achieved in the clinic. This treatment plan has been reviewed and agreement upon by the patient.
--- NOTE | 2023-04-28 09:50 | PTOPDC ---
Assessment and note entered by José Feliciano, PT, DPT Evaluation Information Assessment Status Discharge Diagnosis s/p L TKR Onset 01-24-23 Subjective Information Pt states her knee is doing really good. She cannot think of anything that is particularly challenging. Reported Pain Level Pain Score 0: Self Report Assessment PT Clinical Summary Eulalia presents to therapy today for her progress report following 127 visits of skilled therapy to treat the deficits related to a L TKA on 01/24/23. Today she demonstrates active knee motion from -3 to 118deg. She has met all of her therapy goals and no longer requires skilled services. She will be discharged at this time.
== END 2023-04-28 10:19 | disposition home or self-care (01) ==
LOC: ANHGOSHPT 09:00
PROVIDERS: PCP Nurse Practitioner Family; Visit Provider Orthopaedic Surgery
DX: Z47.1 Aftercare following joint replacement surgery (principal); Z96.652 Presence of left artificial knee joint
CPT/HCPCS: 97014; 97110; 97112; 97140; 97161; 97530; 97750; G0283

== ENCOUNTER 2023-10-14 11:55 | Emergency (ER) | payer MEDICARE, SELFPAY ==
[2023-10-14 11:59] VITALS: BP 168/81; PULSE 74; RESP 16; TEMP 36.6; O2SAT 98
[2023-10-14 12:34] LABS: Basophils Percent Auto 0.4 % (0.2-1.2); Eosinophils Absolute Auto 0.1 K/mm3 (0-0.3); Eosinophils Percent Auto 0.7 % (0-4.4); Hematocrit 41.4 % (37.0-47.0); Hemoglobin 14.2 g/dL (12.0-15.0); Immature Granulocyte Absolute 0.04 K/mm3 (0.00-0.031); Immature Granulocyte Percent A 0.5 % (0-0.5); Lymphocytes Absolute Auto 0.98 K/mm3 (0.9-3.2); Lymphocytes Percent Auto 13.2 % (18.3-44.2); Mean Corpuscular HGB Conc 34.3 g/dl (32-36); Mean Corpuscular Hemoglobin 33.4 pg (26-34); Mean Corpuscular Volume 97.4 fl (80-100); Mean Platelet Volume 10.8 fl (7.4-10.4); Monocytes Absolute Auto 0.5 K/mm3 (0.1-0.6); Monocytes Percent Auto 7.2 % (2.6-8.5); Neutrophils Absolute Auto 5.8 K/mm3 (1.3-6.7); Platelet Count Result 227 k/mm3 (150-375); Red Blood Count 4.25 M/mm3 (4.2-5.4); Red Cell Distribution Width 13.2 % (11.5-14.5); White Blood Count 7.5 K/mm3 (4.5-10.0)
[2023-10-14 12:51] LABS: Alanine Aminotransferase 21 U/L (6-35); Albumin Level 4.6 g/dL (3.5-5.1); Alkaline Phosphatase 58 U/L (38-126); Anion Gap 9 mmol/L (4-12); Aspartate Amino Transferase 30 U/L (14-36); Blood Urea Nitrogen 15 mg/dL (7-17); Calcium 9.6 mg/dL (8.4-10.2); Carbon Dioxide 29 mmol/L (22-30); Chloride 99 mmol/L (98-107); Estimated CRCL calculation 72 ml/min; Estimated Glomerular Filt Rate > 60; Glucose 95 mg/dL (65-110); Lipase 82 U/L (23-300); Potassium 4.8 mmol/L (3.4-5.0); Sodium 137 mmol/L (137-145)
--- NOTE | 2023-10-14 13:16 | PC.NURSE ---
patient states they feel 100 times better and would like to leave because they do not have any pain. educated patient to return to the ER with any concerning symptoms. patient ambulates well with steady gait and does not appear in any resp. distress or pain.
== END 2023-10-14 13:27 | disposition left against medical advice (07) ==
PROVIDERS: Emergency Provider Emergency Medicine; PCP Family Medicine
DX: R10.31 Right lower quadrant pain (principal)
CPT/HCPCS: 36415; 80053; 83690; 85025; 99199

== ENCOUNTER 2024-02-04 10:58 | Emergency (ER) | payer MEDICARE, SELFPAY ==
[2024-02-04 11:03] VITALS: BP 145/80; PULSE 85; RESP 16; TEMP 35.9; O2SAT 100
[2024-02-04 11:30] LABS: Basophils Absolute Auto 0.1 K/mm3 (0.0-0.1); Basophils Percent Auto 0.5 % (0.2-1.2); Eosinophils Absolute Auto 0.6 K/mm3 (0-0.3); Eosinophils Percent Auto 5.3 % (0-4.4); Hematocrit 37.4 % (37.0-47.0); Hemoglobin 12.7 g/dL (12.0-15.0); Immature Granulocyte Absolute 0.11 K/mm3 (0.00-0.031); Immature Granulocyte Percent A 1.1 % (0-0.5); Lymphocytes Percent Auto 12.4 % (18.3-44.2); Mean Corpuscular Hemoglobin 32.7 pg (26-34); Mean Corpuscular Volume 96.4 fl (80-100); Mean Platelet Volume 10.4 fl (7.4-10.4); Monocytes Absolute Auto 1.1 K/mm3 (0.1-0.6); Monocytes Percent Auto 10.4 % (2.6-8.5); Neutrophils Absolute Auto 7.4 K/mm3 (1.3-6.7); Neutrophils Percent Auto 70.3 % (45.5-73.1); Platelet Count Result 271 k/mm3 (150-375); Red Blood Count 3.88 M/mm3 (4.2-5.4); Red Cell Distribution Width 13.2 % (11.5-14.5); White Blood Count 10.5 K/mm3 (4.5-10.0)
[2024-02-04 11:40] LABS: Anion Gap 10 mmol/L (4-12); Blood Urea Nitrogen 13 mg/dL (7-17); Calcium 9.6 mg/dL (8.4-10.2); Carbon Dioxide 26 mmol/L (22-30); Chloride 98 mmol/L (98-107); Estimated CRCL calculation 81 ml/min; Estimated Glomerular Filt Rate > 60; Glucose 105 mg/dL (65-110); Potassium 4.6 mmol/L (3.4-5.0); Sodium 134 mmol/L (137-145)
--- NOTE | 2024-02-04 11:47 | ED_ITS ---
HPI - General Adult General Chief complaint: Extremity Problem,Nontraumatic Stated complaint: extremity swelling Time Seen by Provider: 02/04/24 11:10 History of Present Illness HPI narrative: Patient is a 68-year-old female who presents ER with rash lower extremities. Began over last week. Itching. Pustules noted. She also has edema to her legs. No fevers or chills or sweats. She has been trying baby oil and other creams without improvement. No known sick contacts. No environmental exposures. She has not been hot tub. Related Data Home Medications Medication Instructions Recorded Confirmed lutein 25 mg-zeaxanthin 5 mg 1 cap PO .qd 07/27/19 12/09/23 capsule multivitamin 1 tablet PO DAILY 07/27/19 12/09/23 cholecalciferol (vitamin D3) 50 50 mcg PO DAILY 04/07/21 12/09/23 mcg (2,000 unit) chewable tablet B-complex with vitamin C 1 cap PO DAILY 10/13/22 12/09/23 calcium carbonate (Calcium 600) 600 mg PO DAILY 10/13/22 12/09/23 acetaminophen 650 mg 1,300 mg PO Q12H PRN Pain 01/17/23 12/09/23 tablet,extended release (Tylenol Arthritis Pain) omega 5-brq-dvg-fish oil 120 cap PO 04/08/23 12/09/23 mg-180 mg-500 mg capsule (Fish Oil) Allergies Allergy/AdvReac Type Severity Reaction Status Date / Time sulfamethizole Allergy Unknown Yeast Verified 12/09/23 09:26 infection Review of Systems Constitutional: Constitutional: Reports no additional constitutional complaints Musculoskeletal: Musculoskeletal: Reports no additional musculoskeletal complaints Integumentary/Breasts: Skin/Breast: Reports erythema, Reports rash and Reports skin ulcer PMFSH Past Medical History Medical History Arthritis of knee, left Bereavement Degenerative arthritis of knee, bilateral Valgus gonarthrosis Encounter for screening colonoscopy Hammer toe of left foot Hypertension Obesity, unspecified Osteoporosis Overweight Thyroid disorder Vertigo Surgical History Surgical History H/O: hysterectomy History of left knee replacement January 24, 2023 Hx of hernia repair Family History Family History Sibling Hypertension Family history of lung cancer, Onset Age: 59 Mother Family history of lung cancer, Onset Age: 78 Family history of malignant neoplasm of breast in first degree relative, On set Age: 78 Hyperthyroidism Father Family history of lymphoma Other No family history of cardiovascular disease Social History Social History Smoking packs per day: 0.5 Smoking cigarettes per day: 10.0 Years smoked: 10 Smoking pack-years: 5.00 Smoking status: Former smoker Tobacco type: cigarettes Smoking end date: 03/21/92 Additional smoking assessment comments: DENIES ANY FORM OF TOBACCO USE Alcohol intake: current Drinks per week: 4 Alcohol use details: occasional Substance use: never Substance use type: does not use Do You Feel Safe in your Home?: Yes Lack of Transportation: No Lack of Food: Never True Current Housing: I Do Not Have Housing Concerned About Future Housing: No Difficulty Paying Gas/Electric Bills: No Difficulty Paying for Meds: No Currently Unemployed: No Education: High School Diploma/GED Difficulty w/ Childcare or Family Care: No Living arrangements: alone Occupation/Education: retired Spiritual care concerns: No Exam Narrative: GENERAL: Well-appearing, well-nourished, and in no acute distress. HEAD: Normocephalic, atraumatic. ENT: Mucous membranes moist. CHEST: Clear to auscultation. No respiratory distress. HEART: Regular rate and rhythm. Normal peripheral pulses. EXTREMITIES: Normal range of motion. +2 edema. SKIN: Warm, dry, Pustules bilateral lower extremities as well as excoriations. Largest purulent area is the anterior sarmiento of the right lower extremity. NEURO: Alert and oriented x3. PSYCH: Normal mood and affect. Course Course Emergency Course: Labs unremarkable. Discharge with oral antibiotics and chlorhexidine. Vital Signs Vital signs: Vital Signs Temperature 96.7 F L 02/04/24 11:03 Pulse Rate 85 02/04/24 11:03 Respiratory Rate 16 02/04/24 11:03 Blood Pressure 145/80 H 02/04/24 11:03 Pulse Oximetry 100 02/04/24 11:03 Oxygen Delivery Room Air 02/04/24 11:03 Temperature 96.7 F L 02/04/24 11:03 Pulse Rate 85 02/04/24 11:03 Respiratory Rate 16 02/04/24 11:03 Blood Pressure 145/80 H 02/04/24 11:03 Pulse Oximetry 100 02/04/24 11:03 Oxygen Delivery Room Air 02/04/24 11:03 Medical Decision Making Vital Signs Vital Signs: Vital Signs Temperature 96.7 F L 02/04/24 11:03 Pulse Rate 85 02/04/24 11:03 Respiratory Rate 16 02/04/24 11:03 Blood Pressure 145/80 H 02/04/24 11:03 Pulse Oximetry 100 02/04/24 11:03 Oxygen Delivery Room Air 02/04/24 11:03 Temperature 96.7 F L 02/04/24 11:03 Pulse Rate 85 02/04/24 11:03 Respiratory Rate 16 02/04/24 11:03 Blood Pressure 145/80 H 02/04/24 11:03 Pulse Oximetry 100 02/04/24 11:03 Oxygen Delivery Room Air 02/04/24 11:03 Lab Data 02/04/24 11:25 02/04/24 11:25 Labs: Lab Results 02/04/24 Range/Units 11:25 WBC 10.5 H (4.5-10.0) K/mm3 RBC 3.88 L (4.2-5.4) M/mm3 Hgb 12.7 (12.0-15.0) g/dL Hct 37.4 (37.0-47.0) % MCV 96.4 (80-100) fl MCH 32.7 (26-34) pg MCHC 34.0 (32-36) g/dl RDW 13.2 (11.5-14.5) % Plt Count 271 (150-375) k/mm3 MPV 10.4 (7.4-10.4) fl Immature Gran % (Auto) 1.1 H (0-0.5) % Neut % (Auto) 70.3 (45.5-73.1) % Lymph % (Auto) 12.4 L (18.3-44.2) % [place] % (Auto) 10.4 H (2.6-8.5) % Eos % (Auto) 5.3 H (0-4.4) % Baso % (Auto) 0.5 (0.2-1.2) % Lymph # (Auto) 1.30 (0.9-3.2) K/mm3 [place] # (Auto) 1.1 H (0.1-0.6) K/mm3 Eos # (Auto) 0.6 H (0-0.3) K/mm3 Baso # (Auto) 0.1 (0.0-0.1) K/mm3 Abs Immat Gran (auto) 0.11 H (0.00-0.031) K/mm3 Absolute Neuts (auto) 7.4 H (1.3-6.7) K/mm3 Absolute Nucleated RBC 0.000 (0.0-0.012) K/mm3 Nucleated RBC % 0.0 (0.0-0.2) % Sodium 134 L (137-145) mmol/L Potassium 4.6 (3.4-5.0) mmol/L Chloride 98 (98-107) mmol/L Carbon Dioxide 26 (22-30) mmol/L Anion Gap 10 (4-12) mmol/L BUN 13 (7-17) mg/dL Creatinine 0.60 L (0.7-1.0) mg/dL Estim Creat Clear Calc 81 ml/min Estimated GFR > 60 (59 - ) Glucose 105 (65-110) mg/dL Calcium 9.6 (8.4-10.2) mg/dL Discharge Plan Discharge Clinical Impression: Folliculitis Patient Disposition: Home, Self-Care Condition: Stable Instructions: Folliculitis (ED) Additional Instructions: You have a skin infection. He will be treated with oral antibiotics and a skin cleanser. Follow-up with your primary care physician. Return the ER if you have fever over 100.4? F, you cannot keep down food water, you have additional concerns. Prescriptions: New clindamycin HCl 150 mg capsule 450 mg PO TID 10 Days Qty: 90 0RF chlorhexidine gluconate [Hibiclens] 4 % liquid 1 applic topical ONCE Qty: 237 0RF Rx Instructions: as a single dose No Action cholecalciferol (vitamin D3) 50 mcg (2,000 unit) tablet,chewable 50 mcg PO DAILY B-complex with vitamin C Capsule 1 cap PO DAILY calcium carbonate [Calcium 600] 600 mg calcium (1,500 mg) tablet 600 mg PO DAILY multivitamin Tablet 1 tablet PO DAILY lutein-zeaxanthin 25-5 mg capsule 1 cap PO .qd Fish Oil 120-180-500 mg capsule PO acetaminophen [Tylenol Arthritis Pain] 650 mg Tablet Extended Release 1,300 mg PO Q12H PRN (Reason: Pain) alendronate [Fosamax] 70 mg tablet 70 mg PO WEEKLY Qty: 14 3RF levothyroxine 75 mcg tablet 75 mcg PO DAILY Qty: 90 0RF Rx Instructions: TAKE 1 TABLET DAILY diltiazem HCl 180 mg capsule,ext.rel 24h degradable 180 mg PO QPM Qty: 90 1RF Rx Instructions: TAKE 1 CAPSULE DAILY olmesartan 20 mg tablet 20 mg PO QPM Qty: 90 1RF Rx Instructions: TAKE 1 TABLET DAILY phentermine 37.5 mg capsule 37.5 mg PO DAILY Qty: 30 0RF Rx Instructions: must administer 30 minutes before or 1-2 hours after breakfast Follow-up/Referrals: Ana Rosa Martell MD [Primary Care Provider] - 1 Week
[2024-02-04 12:31] VITALS: BP 122/72; PULSE 79; RESP 18; O2SAT 100
== END 2024-02-04 12:32 | disposition home or self-care (01) ==
PROVIDERS: Emergency Provider Emergency Medicine; PCP Family Medicine
DX: L73.9 Follicular disorder, unspecified (principal); I10 Essential (primary) hypertension; E07.9 Disorder of thyroid, unspecified; E66.9 Obesity, unspecified; Z68.34 Body mass index [BMI] 34.0-34.9, adult; M81.0 Age-related osteoporosis without current pathological fracture; M17.0 Bilateral primary osteoarthritis of knee; Z96.652 Presence of left artificial knee joint; Z87.891 Personal history of nicotine dependence; Z90.710 Acquired absence of both cervix and uterus
CPT/HCPCS: 36415; 80048; 85025; 99283

== ENCOUNTER 2024-02-13 08:23 | Outpatient (CLI) | payer MEDICARE, SELFPAY ==
--- NOTE | ~2024-02-13 | XR_ITS ---
XR tibia fibula RT 2V Ordering provider: Winsome Chan NP History: . S81.801A - Unspecified open wound, right lower leg, initi... . Comparison: None. FINDINGS: BONES: No acute fracture or dislocation. Calcaneal spur. JOINT SPACES: Narrowing of the lateral compartment of the knee. Marginal osteophytes are noted in the knee and patella. SOFT TISSUES: Normal. IMPRESSION: No acute osseous abnormality right leg. Moderate osteoarthritic changes of the joint. Reviewed, dictated and finalized at location A. [facility]
== END 2024-02-13 08:24 | disposition home or self-care (01) ==
LOC: GOSHIMG 08:25
PROVIDERS: PCP Family Medicine; Visit Provider Nurse Practitioner Family
DX: S81.801A Unspecified open wound, right lower leg, initial encounter (principal); X58.XXXA Exposure to other specified factors, initial encounter; M17.11 Unilateral primary osteoarthritis, right knee
CPT/HCPCS: 73590

== ENCOUNTER 2024-03-08 09:00 | Outpatient (RCR) | payer MEDICARE, SELFPAY ==
[2024-02-14 12:30] VITALS: BMI 32.6
== END 2024-04-30 09:16 | disposition home or self-care (01) ==
LOC: ANHWOC 09:00
PROVIDERS: PCP Family Medicine; Visit Provider Nurse Practitioner Family
DX: S81.801A Unspecified open wound, right lower leg, initial encounter (principal); Z48.00 Encounter for change or removal of nonsurgical wound dressing
CPT/HCPCS: 99212; 99213; 99214; A9270; G0463

== ENCOUNTER 2024-04-25 09:28 | Outpatient (CLI) | payer MEDICARE, SELFPAY ==
--- NOTE | ~2024-04-25 | US_ITS ---
EXAMINATION: US arterial ankle brachial ind DATE: 04/25/2024 10:24 INDICATION: Unspecified open wound at the right lower leg. TECHNIQUE: Segmental pressures and plethysmographic and Doppler waveforms of the brachial and lower e xtremity arteries were obtained. COMPARISON: None. FINDINGS: Right and left brachial artery pressures of 138 mm Hg and 137 mm Hg, respectively, are concordant (no rmal difference <= 30 mmHg). The right ankle-brachial index (DAVID) is 1.09 (normal >= 0.9-1.0). The right great toe-brachial index (TBI) is 0.80 (normal >= 0.65). Arterial Doppler waveforms biphasic with brisk systolic upstrokes at both right posterior tibial and dorsalis pedis arteries. The left DAVID is 1.07. The left TBI is 0.75. Arterial Doppler waveforms are biphasic with brisk systol ic upstrokes at both left posterior tibial and dorsalis pedis arteries. IMPRESSION: 1. No significant arterial occlusive disease with normal bilateral ABIs and TBIs. Reviewed, dictated and finalized at location A. DATA ENTRY OPERATOR IMPRESSION: 1. No significant arterial occlusive disease with normal bilateral ABIs and TBI s.
--- OUTSIDE RECORDS SUMMARY | 2024-04-25 10:05 | XMS_ITS | Referral Summary ---
Author Organization [facility] Address [address] [place] [address] Care Team Providers Care School Speech Language Pathologist Name Role Phone Unavailable Primary Care Provider Unavailabl e Source Comments [facility],non-owned Affiliates and Associated Physician Practices is amultiple site organization consisting of ambulatory clinics and hospital sitesin [place], [place], [place] and [place]. This disclosure is being madepursuant to the Care Everywhere program and may not contain all information available regarding this patient. Last updated 17.[facility] [facility] Social History Tobacco Use Types Packs/Day Years Used Date Smoking Tobacco: Never Assessed Sex and Gender Information Value Date Recorded Sex Assigned at Not on file Gender Identity Not on file Sexual Orientation Not on file Plan of Treatment Not on file
--- OUTSIDE RECORDS SUMMARY | 2024-04-25 10:05 | XMS_ITS | Encounter Summary ---
Author Organization [facility] Address [address] [place] [address] Care Team Providers Care Principal Secretary Name Role Phone Unavailable Primary Care Provider Unavailabl e Encounter Details Date Type Department Care Team (Late st Contact Info) Description 12/28/2022 Lab Requisition [facility] [address] [place] [address] Mariam Alas Update Information Social History Tobacco Use Types Packs/Day Years Used Date Smoking Tobacco: Never Assessed Sex and Gender Information Value Date Recorded Sex Assigned at Not on file Gender Identity Not on file Sexual Orientation Not on file documented as of this encounter Plan of Treatment Not on file documented as of this encounter Procedures Procedure Name Priority Date/Time Associated Diagnosis Comments DERMPATH SLIDE CONSULT Routine 12/28/2022 12:00 AM CDT documented in this encounter Results * DERMPATH SLIDE CONSULT (12/28/2022 12:00 AM CDT) Case Report Dermatopathology Report ? Case: [id number] ? Authorizing Provider: ??Mariam Alas ?Collected: ? 12/28/2022 12:00 AM ? Ordering Location: ? [facility] ? Received: ?12/28/2022 05:13 PM ? Pathologist: ? Bonny Mix, ? MD ? Specimen: ?Skin, [id number], right upper back lesion [id number], right lower back lesion ? 3 3:16 PM CDT DERMATOPATHOLOGY LABORATORY Final Diagnosis Specimen A1. [id number], right upper back lesion: JUNCTIONAL MELANOCYTIC PROLIFERATION; PRESENT AT MARGIN (D48.5) (see microscopic description and comment) Specimen A2: [id number], right lower back lesion: SEBORRHEIC KERATOSIS, MACULAR (L82.1) 3 3:16 PM CDT DERMATOPATHOLOGY LABORATORY Clinical History Materials received from: [place] [address] P [phone] A1: Received at the request of Dr Mariam Alas are 2 slides and 1 block labeled [id number]. (H&E 1-2). Outside diagnosis: Irritated junctional nevus, the lesion involves the peripheral margin, A2: Received at the request of Dr Mariam Alas are 2 slides and 1 block labeled [id number]. (H&E 1-2) Outside diagnosis: Pigmented seborrheic keratosis, the lesion appears completley excised. Any additional sections, special stains or immunohistochemical stains performed by our laboratory will be kept here on file. 3 3:16 PM CDT DERMATOPATHOLOGY LABORATORY Microscopic Description Specimen A1. [id number], right upper back lesion: Sections show a junctional melanocytic proliferation. There is a lentiginous proliferation of melanocytes between irregular nests. Scattered melanocytes show evidence of upward migration within the epidermis. MART-1/Melan-A immunohistochemical stain performed at [facility] Dermatopathology highlights the melanocytes as above. Additional deeper sections were obtained and reviewed. This lesion is present at the margin of the specimen. COMMENT: Because this lesion is present at the margin of the specimen, symmetry and circumscription can not be evaluated. Therefore, a complete but conservative re-excision is recommended to evaluate this lesion in its entirety. This case was also reviewed by Dr. Shannan Finley who agrees with the diagnosis. Specimen A2: [id number], right lower back lesion: Sections show a relatively broad, flat proliferation of small keratinocytes. The surface is gently papillated, and there is increased basilar pigmentation. MART-1/Melan-A immunohistochemical stain performed at [facility] Dermatopathology fails to highlight a melanocytic proliferation. Additional deeper sections were obtained and reviewed. 3 3:16 PM CDT DERMATOPATHOLOGY LABORATORY Disclaimer An external and internal positive and negative controls are appropriate for the histochemical, immunohistochemical and immunofluorescence stain(s) in this case (if any), except where stated explicitly. The performance characteristics of the stain(s) cited in this report were developed and its performance characteristic determined by the Dermatopathology Laboratory at [facility], directed by Dr. Bi Mcelroy. These tests need not be, and therefore are not, approved by the [place] Food and Drug Administration. The tests are used for clinical purposes. Billing Codes Specimen Charges Stain Charges 71185 1 41696 48274 1 1 3 3:16 PM CDT DERMATOPATHOLOGY LABORATORY Embedded Images 3 3:16 PM CDT DERMATOPATHOLOGY LABORATORY Pathology/Cytolog y TISSUE SPECIMEN FROM SKIN / Unknown 12/28/2022 12/28/2022 5:13 PM CDT Mariam Alas LAB - PATHOLOGY/CYTO LOGY ORDERABLES DERMATOPATHOLOGY LABORATORY [facility] - Department of Dermatology [address] [phone] documented in this encounter Visit Diagnoses Not on filedocumented in this encounter
--- OUTSIDE RECORDS SUMMARY | 2024-04-25 10:05 | XMS_ITS | Patient Health Summary ---
Author Organization [facility] Address [address] [facility] [place] [address] Care Team Providers Care Floorwalker Name Role Phone Unavailable Primary Care Provider Unavailabl e Note from [facility],non-owned Affiliates and Associated Physician Practices is amultiple site organization consisting of ambulatory clinics and hospital sitesin [place], [place], [place] and [place]. This disclosure is being madepursuant to the Care Everywhere program and may not contain all information available regarding this patient. Last updated 17.[facility] Social History Tobacco Use Types Packs/Day Years Used Date Smoking Tobacco: Never Assessed Sex and Gender Information Value Date Recorded Sex Assigned at Not on file Gender Identity Not on file Sexual Orientation Not on file Procedures * DERMPATH SLIDE CONSULT(Performed 12/28/2022) Results * DERMPATH SLIDE CONSULT (12/28/2022 12:00 AM CDT) Case Report Dermatopathology Report ? Case: [id number] ? Authorizing Provider: ??Mariam Alas ?Collected: ? 12/28/2022 12:00 AM ? Ordering Location: ? [facility] ? Received: ?12/28/2022 05:13 PM ? Pathologist: ? Bonny Mix, ? MD ? Specimen: ?Skin, [id number], right upper back lesion [id number], right lower back lesion ? 3 3:16 PM T DERMATOPATHOLOGY LABORATORY Final Diagnosis Specimen A1. [id number], right upper back lesion: JUNCTIONAL MELANOCYTIC PROLIFERATION; PRESENT AT MARGIN (D48.5) (see microscopic description and comment) Specimen A2: [id number], right lower back lesion: SEBORRHEIC KERATOSIS, MACULAR (L82.1) 3 3:16 PM T DERMATOPATHOLOGY LABORATORY Clinical History Materials received from: [address] [phone] A1: Received at the request of Dr Mariam Alas are 2 slides and 1 block labeled [id number]. (H&E 1-2). Outside diagnosis: Irritated junctional nevus, the lesion involves the peripheral margin, A2: Received at the request of Dr Mariam Alas are 2 slides and 1 block labeled [id number]. (H&E 1-2) Outside diagnosis: Pigmented seborrheic keratosis, the lesion appears completley excised. Any additional sections, special stains or immunohistochemical stains performed by our laboratory will be kept here on file. 3 3:16 PM CDT DERMATOPATHOLOGY LABORATORY Microscopic Description Specimen A1. [id number], right upper back lesion: Sections show a junctional melanocytic proliferation. There is a lentiginous proliferation of melanocytes between irregular nests. Scattered melanocytes show evidence of upward migration within the epidermis. MART-1/Melan-A immunohistochemical stain performed at [facility] Dermatopathology highlights the melanocytes as above. [...] who agrees with the diagnosis. Specimen A2: [id number], right lower back lesion: Sections show a relatively broad, flat proliferation of small keratinocytes. The surface is gently papillated, and there is increased basilar pigmentation. MART-1/Melan-A immunohistochemical stain [facility] fails to highlight a melanocytic proliferation. Additional deeper sections were obtained and reviewed. 3:16 PM CDT DERMATOPATHOLOGY LABORATORY Disclaimer An external and internal positive and negative controls are appropriate for the histochemical, immunohistochemical and immunofluorescence stain(s) in this case (if any), except where stated explicitly. The performance characteristics of the stain(s) cited in this report were developed and its performance characteristic determined by the Dermatopathology Laboratory at [facility], directed by Dr. Bi Mcelroy. These tests need not be, and therefore are not, approved by the [place] Food and Drug Administration. The tests are used for clinical purposes. Billing Codes Specimen Charges Stain Charges 41260 1 [id number] 05206 1 1 3 3:16 PM CDT DERMATOPATHOLOGY LABORATORY Embedded Images 3:16 PM CDT DERMATOPATHOLOGY LABORATORY Pathology/Cytolog y TISSUE SPECIMEN FROM SKIN / Unknown 12/28/2022 12/28/2022 5:13 PM CDT Mariam Alas LAB - PATHOLOGY/CYTO LOGY ORDERABLES DERMATOPATHOLOGY LABORATORY [facility] - Department of Dermatology [address] [phone]
--- OUTSIDE RECORDS SUMMARY | 2024-04-25 10:05 | XMS_ITS | Clinical Summary ---
Author Organization [facility] [address] Address [address] [place] [id number] Care Team Providers Care Excavating Machine Operator Name Role Phone Iris Ireland MD Primary Care Provider [phone] Allergies Active Allergy Reactions Criticality Noted Date Comments Sulfa Other (See comments) Low 11/16/2022 Medications Synthroid 75 mcg tablet 1 Active olmesartan (BENICAR) 20 mg tablet 1 Active dilTIAZem XR 180 mg 24 hr capsule 1 Active alendronate (FOSAMAX) 70 mg tablet 1 Active topiramate (TOPAMAX) 25 mg tablet 2 Active meloxicam (MOBIC) 15 mg tablet 2 Active FLUoxetine (PROzac) 20 mg capsule 2 Active albuterol HFA (PROVENTIL HFA,VENTOLIN HFA,PROAIR HFA) 90 mcg/actuation inhaler INHALE 2 PUFFS EVERY 4 HOURS NEEDED FOR SHORTNESS OF BREATH OR FOR WHEEZE 4 Active amoxicillin-cla vulanate (AUGMENTIN) 875-125 mg per tablet Take 1 tablet by mouth 2 (two) times a day 4 Active benzonatate (TESSALON) 100 mg capsule TAKE ONE CAPSULE BY MOUTH THREE TIMES DAILY NEEDED FOR COUGH 4 Active methylPREDNISol one (MEDROL DOSEPACK) 4 mg Dosepack TAKE 6 TABLETS ON DAY 1 DIRECTED ON PACKAGE AND DECREASE BY 1 TAB EACH DAY FOR A TOTAL OF 6 DAYS 4 Active calcium carbonate (Calcium 600) 1,500 mg (600 mg elemental) tablet Calcium 600 600 mg calcium (1,500 mg) tablet Active mv-min-vit C-Glu-Chiqui ac-hb124 (Airborne, with lysine acetate,) 250-12.5 mg tablet,chewable Airborne Vits Zinc Elderberry unspecified unspecified Active phentermine 37.5 mg capsule TAKE 1 CAPSULE BY MOUTH EVERY DAY 30 MINUTES BEFORE OR 1-2 HOURS AFTER BREAKFAST Active Active Problems No known active problems Encounters Date Type Department Care Team Description 02/04/2024 10:15 AM BELT LINE FEEDER Office Visit [facility] at [address] [phone] Anamika Alanis NP Open wound of right lower leg, initial encounter (Primary Dx); Bilateral lower extremity edema from Last 3 Months Surgical History Surgery Date Site/Laterality Comments HYSTERECTOMY partial HERNIA REPAIR Medical History Medical History Date Comments Hypertension Thyroid disease Social History Tobacco Use Types Packs/Day Years Used Date Smoking Tobacco: Never Smokeless Tobacco: Never AUDIT-C Answer Date Recorded Q1: How often do you have a drink containing alc ohol? Monthly or less 02/01/2021 Q2: How many drinks containi ng alcohol do you have on a typical day when you are drinking? 1 or 2 02/01/2021 Q3: How often do you have si x or more drinks on one occasion? Never 02/01/2021 Comments Unknown Sex and Gender Information Value Date Recorded Sex Assigned at Not on file Legal Sex Female 10:16 AM BELT LINE FEEDER Gender Identity Not on file Sexual Orientation Not on file Obstetrics History Last Filed Vital Signs Vital Sign Reading Time Taken Comments Blood Pressure 111/75 02/04/2024 10:22 AM BELT LINE FEEDER Pulse 76 02/04/2024 10:22 AM BELT LINE FEEDER Temperature 36.9 ??C (98.4 ??F) 02/04/2024 10:[address] Respiratory Rate 20 02/04/2024 10:22 AM BELT LINE FEEDER Oxygen Saturation 98% 02/04/2024 10:22 AM BELT LINE FEEDER Inhaled Oxygen Concentration - - Weight 87.2 kg (192 lb 4.8 oz) 02/04/2024 10:22 AM BELT LINE FEEDER Height 160 cm (5' 3 ) 02/04/2024 10:22 AM BELT LINE FEEDER Body Mass Index 34.06 02/04/2024 10:22 AM BELT LINE FEEDER Plan of Treatment Health Maintenance Due Date Last Done Comments Breast Cancer Screening-Mammogram 1955 Colon Cancer Screening-Colonoscopy 1955 Depression Screening 1956 Fall Risk Assessment 1955 Hepatitis C Screening 1955 Osteoporosis Screening-Bone Density Scan 1956 DTaP/Tdap/Td Vaccine (1 - Tdap) 10/23/1967 Hepatitis B Screening 1974 Zoster Vaccine (1 of 2) 2006 Pneumococcal vaccine 65+ (1 of 1 - PCV) 2021 Well Visit 65+ 2021 Covid-19 Vaccine (3 - 2023-2 5 season) 2023 05/16/2020, 04/23/2020 Influenza Vaccine (#1) 2023 , 12/17/2019, 12/12/2018, Additional history exists Insurance [facility] MEDICARE GOLD [facility] MEDICARE GOLD Care Teams Excavating Machine Operator Relationship Specialty Start Date End Date Iris Ireland MD [address] [place] [address] PCP - General Family Medicine 02/01/21
--- OUTSIDE RECORDS SUMMARY | 2024-04-25 10:05 | XMS_ITS | CONTINUITY OF CARE DOCUMENT ---
Author Name tamica davey Address Unknown Organization [facility] Address [address] [place] [address] Phone [phone] Care Team Providers Care Machine Filler Shredder Name Role Phone Robert ELAINE, Romy Unavailable JASONJESSICA PHILIP Unavailable [phone] HOPJESSICAPHILIP Unavailable [phone] PROBLEMS Condition Status Date Provider Notes Osteoarthritis active Asad Ahmedzai Hypertension active Asad Ahmedzai Obesity active Asad Ahmedzai Hypothyroidism active Asad Ahmedzai Preoperative cardiovascular evaluation active Asad Ahjayzai Goiter completed - Romy Jones MD Former smoker active Romy Jones MD ENCOUNTERS Date Type Provider Location Encounter Diag nosis - In-person encounter Office Visit Romy Jones MD [place] [facility] GoiterFormer smoker VITAL SIGNS Date Observation Value Provider Body Mass Index (Ratio) 33.83 kg/m2 Abhijit Jones MD blood pressure, diastolic 76 mm[Hg] Li nkLogic blood pressure, systolic 129 mm[Hg] Karen kLogic blood pressure, cuff size regular Ja rret blood pressure, diastolic 76 mm[Hg] Ja rret blood pressure, systolic 129 mm[Hg] Jar ret pulse rate 67 /min Antoine y oxygen saturation, oximetry 98 % Antoine respiratory rate E&M 12 /min Antoine height E&M 63 [in_i] Antoine y weight E&M 191 [lb_av] Antoine y ALLERGIES Allergy Name Onset Date Reaction Criticality Status SULFUR Low Criticality active HISTORY OF MEDICATION USE Medication Status Instructions Dates Provider Indications Com ments olmesartan 20 mg tablet active TAKE 1 TABLET BY MOUTH DAILY alendronate 70 mg tablet active Antoine meloxicam 15 mg tablet active TAKE 1 TABLET BY MOUTH DAILY Antoine Synthroid 75 mcg tablet active Antoine diltiazem HCl unspecified unspecified active Calcium 600 600 mg calcium (1,500 mg) tablet active Airborne Vits Zinc Elderberry unspecified unspecified active SOCIAL HISTORY Date Observation Value Provider social history E&M S moking History: Constanza lemus is a former smoker. Asad Acosta cigarette use yes Antoine nidia ay smoking status Former smoker Antoine Rosenbaum rené social history reviewed E&M revi ewed - no changes required Asad Acosta INSURANCE PROVIDERS Payer name Policy type / Coverage type [place] red constitution party ID AETNA [facility] Other [id number] ADVANCE DIRECTIVES Name Date DISCUSSED - NO DECISION MADE TREATMENT PLAN Date Name Performer [id number],S, Asad Cedillo i [id number],S, Asad Cedillo i [id number],S, Asad Cedillo i [id number],S, Asad Ceidllo i [id number],S, Asad Cedillo i Cardiology Asad Acosta Cardiology Asad Acosta Cardiology Asad Acosta Cardiology Asad Acosta Cardiology Asad Acosta HISTORY OF PROCEDURES Procedure Date Procedure Name Provider Procedure Notes S tatus EKG Romy Jones MD completed
--- OUTSIDE RECORDS SUMMARY | 2024-04-25 10:05 | XMS_ITS | Clinical Summary ---
Author Organization [facility] Address [address] [place] [address] Care Team Providers Care International Flight Attendant Name Role Phone Unavailable Primary Care Provider Unavailabl e Source Comments [facility],non-owned Affiliates and Associated Physician Practices is amultiple site organization consisting of ambulatory clinics and hospital sitesin [place], [place], [place] and [place]. This disclosure is being madepursuant to the Care Everywhere program and may not contain all information available regarding this patient. Last updated 17.[facility] Social History Tobacco Use Types Packs/Day Years Used Date Smoking Tobacco: Never Assessed Sex and Gender Information Value Date Recorded Sex Assigned at Not on file Gender Identity Not on file Sexual Orientation Not on file Plan of Treatment Health Maintenance Due Date Last Done Comments BONE DENSITY TESTING 1955 COLOGUARD (AGES 45-75) - COL ON CA SCREENING 1956 COLON MONITORING 1956 COLONOSCOPY - COLON CA SCREENING 1956 CT COLONOGRAPHY - COLON CA SCREENING 1956 Colorectal Cancer Screening 1956 FIT - COLON CA SCREENING 1956 FLEX SIG - COLON CA SCREENING 1956 LIPID TESTING 1956 MAMMOGRAM 1956 HEPATITIS C SCREENING 10/18/1974 DTAP/TDAP/TD VACCINES (1 - Tdap) 10/23/1975 PNEUMOCOCCAL VACCINE 50+ (1 of 1 - PCV) 2006 ZOSTER VACCINE (1 of 2) 2006 COVID-19 VACCINE ( - 2023-2 5 season) 2023 INFLUENZA VACCINE (#1) 2023 DEPRESSION SCREENING 03/21/2024 MEDICARE AWV ? CALENDAR YEAR 2024 Respiratory Syncytial Virus (RSV) Vaccine Pt: or over 60 yrs (1 - 1-dose 75+ series) 10/23/2031 HEPATITIS B VACCINE Aged Out No longe r eligible based on patient's age to complete this topic HIB VACCINE Aged Out No longer eligi ble based on patient's age to complete this topic HPV VACCINE Aged Out No longer eligi ble based on patient's age to complete this topic MENINGOCOCCAL (Group B) VACCINE Aged Out No longer eligible based on patient's age to complete this topic MENINGOCOCCAL VACCINE Aged Out No shawna kings eligible based on patient's age to complete this topic EULALIA MACIAS Personal/[place] [address] EULALIA MACIAS Personal/Family Spouse Yamile [address] [place] [address]
--- OUTSIDE RECORDS SUMMARY | 2024-04-25 10:05 | XMS_ITS | Referral Summary ---
Author Organization [facility] [address] Address [address] [place] [address] Care Team Providers Care Center Director Name Role Phone Iris Ireland MD Primary Care Provider [phone] Encounters Date Type Department Care Team Description 02/04/2024 10:15 AM DEVELOPER DESIGNER Office Visit [facility] Medical Group Convenient Care at [address] [address] Anamika Alanis NP Open wound of right lower leg, initial encounter (Primary Dx); Bilateral lower extremity edema from Last 3 Months Allergies Active Allergy Reactions Criticality Noted Date [...] MINUTES BEFORE OR 1-2 HOURS AFTER BREAKFAST 4 Active Active Problems No known active problems Social History Tobacco Use Types Packs/Day Years [...] on file Legal Sex Female 10:16 AM DEVELOPER DESIGNER Gender Identity Not on file Sexual Orientation Not on file Last Filed Vital Signs Vital Sign Reading Time Taken Comments Blood Pressure 111/75 02/04/2024 10:22 AM DEVELOPER DESIGNER Pulse 76 02/04/2024 10:22 AM DEVELOPER DESIGNER Temperature 36.9 ??C (98.4 ??F) 02/04/2024 10:[address] Respiratory Rate 20 02/04/2024 10:22 AM DEVELOPER DESIGNER Oxygen Saturation 98% 02/04/2024 10:22 AM DEVELOPER DESIGNER Inhaled Oxygen Concentration - - Weight 87.2 kg (192 lb 4.8 oz) 02/04/2024 10:22 AM DEVELOPER DESIGNER Height 160 cm (5' 3 ) 02/04/2024 10:22 AM DEVELOPER DESIGNER Body Mass Index 34.06 02/04/2024 10:22 AM DEVELOPER DESIGNER Plan of Treatment Not on file Insurance AETNA MEDICARE GOLD AETNA MEDICARE GOLD Care Teams Center Director Relationship Specialty Start Date End Date Iris Ireland MD [address] [place] [address] PCP - General Family Medicine 02/01/21
== END 2024-04-25 09:29 | disposition home or self-care (01) ==
PROVIDERS: PCP Family Medicine; Visit Provider Nurse Practitioner Family
DX: R09.89 Other specified symptoms and signs involving the circulatory and respiratory systems (principal); I83.019 Varicose veins of right lower extremity with ulcer of unspecified site; L97.919 Non-pressure chronic ulcer of unspecified part of right lower leg with unspecified severity
CPT/HCPCS: 93922

== ENCOUNTER 2024-05-01 08:39 | Outpatient (CLI) | payer MEDICARE, SELFPAY ==
--- NOTE | ~2024-05-01 | DEXA_ITS ---
Bone Density Report Name: LISHA MACIAS Age: 68 Sex: Female Ethnicity: White Date of : 1955 Indication: osteopenia; hysterectomy; Referring Provider: WAQAR MCINTOSH Study: Bone densitometry was performed. Exam Date: May 01, 2024 Accession number: [id number] Bone Density: Region BMD T-score Z-score Classification AP Spine(L2, L3, L4) 1.112 0.3 2.3 Normal Femoral Neck (Left) 0.674 -1.6 0.1 Osteopenia Total Hip (Left) 0.814 -1.0 0.3 Normal Femoral Neck (Right) 0.680 -1.5 0.1 Osteopenia Total Hip (Right) 0.794 -1.2 0.2 Osteopenia Total Hip Mean 0.804 -1.1 0.3 Osteopenia World Health Organization criteria for BMD impression classify patients as: Normal (T-score at or above -1.0), Osteopenia (T-score between -1.0 and -2.5), or Osteoporosis (T-score at or below -2.5). 10-year Fracture Risk(1): Major Osteoporotic Fracture 8.9% Hip Fracture 1.0% Reported Risk Factors: [place] (), Neck BMD=0.674, BMI=33.6 (1) FRAX(R) Version 3.08. Fracture probability calculated for an untreated patient. Fracture probability may be lower if the patient has received treatment. Previous Exams: Region Exam Age BMD T-score BMD Change BMD Change Date g/cm2 vs Baseline vs Previous AP Spine (L2-L4) 05/01/2024 68 1.112 0.3 0.132 (13.5%)# 0.132 (13.5%)# 12/29/2020 65 0.979 -0.9 Total Hip(Left) 05/01/2024 68 0.814 -1.0 0.053 (6.9%)# 0.053 (6.9%)# 12/29/2020 65 0.762 -1.5 Total Hip(Right) 05/01/2024 68 0.794 -1.2 0.037 (4.9%)# 0.037 (4.9%)# 12/29/2020 65 0.758 -1.5 *Denotes significance at 95% confidence level, LSC for AP Spine = 0.022 g/cm2, LSC for Total Hip = 0.027 g/cm2 # Denotes dissimilar scan types or analysis methods Clinical Information Provided by Patient: Has used the following medications: Fosamax (i.e. alendronate), Vitamin D, Calcium Has the following medical conditions: Hysterectomy Patient maximum height was 63 Menopause Age: 51 Does not regularly consume dairy products Drinks caffeinated beverages Onset of menses at age 13 Number of children 2 Impression: The patient has low bone mass, based on the Left Femoral Neck T-score. The patient has an estimated ten-year risk of hip fracture of 1% and an estimated ten-year risk of major fracture of 8.9%, based on the WHO FRAX algorithm. No significant bone loss was observed. Discussion: BONE DENSITY IS LOW AT ONE OR MORE SKELETAL SITES. This patient's lowest T-score is low at one or more skeletal sites. It meets the World Health Organization's (WHO) criteria for ?low bone mass? (T-score between -1.0 and -2.5). The patient's 10-year risk of fracture as calculated by FRAX is less than the threshold where pharmacological therapy is recommended by the National Osteoporosis Foundation (NOF). However, all treatment decisions require clinical judgment and consideration of individual patient factors, including patient preferences, comorbidities, previous drug use, risk factors not captured in the FRAX model (e.g., frailty, falls, vitamin D deficiency, increased bone turnover, interval significant decline in bone density) and possible under or overestimation of fracture risk by FRAX. The patient should follow a healthful lifestyle (good nutrition with adequate calcium and vitamin D, and appropriate weight-bearing exercise). Follow-Up: Consider repeating this study in 2 to 3 years to reassess this patient's status, or sooner if there is some new clinical indication. Reported by: SANGITA on 05/01/2024 9:23:00 AM. Reviewed, dictated and finalized at location AMaisha GARCIA
--- NOTE | ~2024-05-01 | MM_ITS ---
EXAMINATION: MM screening saturnino BI w matt HISTORY: Screening TECHNIQUE: Craniocaudal and mediolateral oblique 3-D tomosynthesis images were obtained and synthetic 2-D images were generated. CAD analysis was submitted and interpreted. COMPARISON: Comparison to multiple prior studies sequentially, with oldest reviewed study dated 10/03. BREAST PARENCHYMAL COMPOSITION: Not Dense: The breasts are almost entirely fatty. FINDINGS: There is no evidence of suspicious mass, calcification, or architectural distortion to sugg est malignancy in either breast. There has been no suspicious interval change. IMPRESSION: 1. No mammographic evidence of malignancy. 2. Recommend routine screening mammography in one year. BI-RADS Category 1: Negative Reviewed, dictated and finalized at location B. RY [employer]
--- OUTSIDE RECORDS SUMMARY | 2024-05-01 09:16 | XMS_ITS | CONTINUITY OF CARE DOCUMENT ---
Author Name tamica davey Address Unknown Organization [facility] Address [address] [place] [address] Phone [phone] Care Team Providers Care Soldering Inspector Name Role Phone Robert ELAINE, Romy Unavailable JASONJESSICA PHILIP Unavailable [phone] HOPPHILIP LOPEZ Unavailable [phone] PROBLEMS Condition Status Date Provider Notes Osteoarthritis active Asad Ahmedzai Hypertension active Asad Ahmedzai Obesity active Asad Ahmedzai Hypothyroidism active Asad Ahmedzai Preoperative cardiovascular evaluation active Asad Ahmedzai Former smoker active Romy Jones MD Goiter completed - Romy Jones MD ENCOUNTERS Date Type Provider Location Encounter Diag nosis - In-person encounter Office Visit Romy Jones MD [place] [facility] GoiterFormer smoker VITAL SIGNS Date Observation [...] Payer name Policy type / Coverage type [place] red constitution party ID AETNA [facility] Other [id number] ADVANCE DIRECTIVES Name Date DISCUSSED - NO DECISION MADE TREATMENT PLAN Date Name Performer [id number],S, Asad Cedillo i [id number],S, Asad Cedillo i [id number],S, Asad Cedillo i [id number],S, Asad Cedillo i [id number],S, Asad Cedillo i Cardiology Asad Acosta Cardiology Asad Acosta Cardiology Asad Acosta Cardiology Asad Acosta Cardiology Asad Acosta HISTORY OF PROCEDURES Procedure Date Procedure Name Provider Procedure Notes S tatus EKG Romy Jones MD completed
--- OUTSIDE RECORDS SUMMARY | 2024-05-01 09:16 | XMS_ITS | Clinical Summary ---
Author Organization [facility] Address [address] [place] [address] Care Team Providers Care Cuff Stitcher Name Role Phone Unavailable Primary Care Provider Unavailabl e Source Comments [facility] [employer],non-owned Affiliates and Associated Physician Practices is amultiple site organization consisting of ambulatory clinics and hospital sitesin [place], [place], [place] and [place]. This disclosure is being madepursuant to the Care Everywhere program and may not contain all information available regarding this patient. Last updated 17.[facility] [employer] Social History Tobacco Use Types Packs/Day Years [...] (#1) 2023 DEPRESSION SCREENING 03/21/2024 MEDICARE AWV CALENDAR YEAR 2024 Respiratory Syncytial Virus (RSV) [...] complete this topic EULALIA MACIAS Personal/Family Spouse [address] [place] [address] GILBERTOEULALIA Personal/Family Spouse [address] [place] [address]
--- OUTSIDE RECORDS SUMMARY | 2024-05-01 09:16 | XMS_ITS | Encounter Summary ---
Author Organization [facility] Address [address] [place] [address] Care Team Providers Care Associate Professor Of Chemistry Name Role Phone Unavailable Primary Care Provider Rivka e Encounter Details Date Type Department Care Team (Late st Contact Info) Description 12/28/2022 Lab Requisition [facility] - DermPath Lab [address] [place] [id number] Mariam Alas Update Information Social History Tobacco [...] 12:00 AM CDT) Case Report Dermatopathology Report Case: [id number] Authorizing Provider: Mariam Alas Collected: 12/28/2022 12:00 AM Ordering Location: [facility] DermPath Lab Received: 12/28/2022 05:13 PM Pathologist: Bonny Mix MD Specimen: Skin, [id number], right upper back lesion [id number], right lower back lesion 3 3:16 PM CDT DERMATOPATHOLOGY LABORATORY Final Diagnosis Specimen A1. [id number], right upper back lesion: JUNCTIONAL MELANOCYTIC PROLIFERATION; PRESENT AT MARGIN (D48.5) (see microscopic description and comment) Specimen A2: [id number], right lower back lesion: SEBORRHEIC KERATOSIS, MACULAR (L82.1) 3 3:16 PM CDT DERMATOPATHOLOGY LABORATORY Clinical History Materials received from: [address] [place] [address] P [phone] A1: Received at the request of Dr Mariam Alas are 2 slides and 1 block labeled [id number]. (H&E 1-2). Outside diagnosis: Irritated junctional nevus, the lesion involves the peripheral margin, A2: Received at the request of Dr Mariam Aals are 2 slides and 1 block labeled [id number]. (H&E 1-2) Outside diagnosis: Pigmented seborrheic keratosis, the lesion appears completley excised. Any additional sections, special stains or immunohistochemical stains performed by our laboratory will be kept here on file. 3:16 PM [facility] DERMATOPATHOLOGY LABORATORY Microscopic Description Specimen A1. [id number], right upper back lesion: Sections show a junctional melanocytic proliferation. There is a lentiginous proliferation of melanocytes between irregular nests. Scattered melanocytes show evidence of upward migration within the epidermis. MART-1/Melan-A [facility] highlights the melanocytes as above. Additional deeper [...] who agrees with the diagnosis. Specimen A2: [id number], right lower back lesion: Sections show a relatively broad, flat proliferation of small keratinocytes. The surface is gently papillated, and there is increased basilar pigmentation. MART-1/Melan-A immunohistochemical stain [facility] fails to highlight a melanocytic proliferation. Additional deeper sections were obtained and reviewed. 3:16 PM [facility] DERMATOPATHOLOGY LABORATORY Disclaimer An external and internal positive and negative controls are appropriate for the histochemical, immunohistochemical and immunofluorescence stain(s) in this case (if any), except where stated explicitly. The performance characteristics of the stain(s) cited in this report were developed and its performance characteristic determined by the Dermatopathology Laboratory at [facility], directed by Dr. Bi Mcelroy. These tests need not be, and therefore are not, approved by the [place] Food and Drug Administration. The tests are used for clinical purposes. Billing Codes Specimen Charges Stain Charges 58726 1 36281 19705 1 1 3 3:16 PM CDT DERMATOPATHOLOGY LABORATORY Embedded Images 3:16 PM CDT DERMATOPATHOLOGY LABORATORY Pathology/Cytolog y TISSUE SPECIMEN FROM SKIN / Unknown 12/28/2022 12/28/2022 5:13 PM CDT Mariam Alas LAB - PATHOLOGY/CYTO LOGY ORDERABLES DERMATOPATHOLOGY LABORATORY [facility] - Department of Dermatology [facility] Medicine [address] [place] [address], [address] [phone] documented in this encounter Visit Diagnoses Not on filedocumented in this encounter
--- OUTSIDE RECORDS SUMMARY | 2024-05-01 09:16 | XMS_ITS | Clinical Summary ---
Author Organization [facility] [address] Address [address] [place] [address] Care Team Providers Care Submarine Diver Name Role Phone Iris Ireland MD Primary Care Provider [phone] Allergies Active Allergy Reactions Criticality Noted Date [...] Department Care Team Description 02/04/2024 10:15 AM FELT WASHING MACHINE TENDER Office Visit [facility] Medical Group Convenient Care at [address] [address] Anamika Alanis NP Open wound [...] on file Legal Sex Female 10:16 AM FELT WASHING MACHINE TENDER Gender Identity Not on file Sexual Orientation Not on file Obstetrics History Last Filed Vital Signs Vital Sign Reading Time Taken Comments Blood Pressure 111/75 02/04/2024 10:22 AM FELT WASHING MACHINE TENDER Pulse 76 02/04/2024 10:22 AM FELT WASHING MACHINE TENDER Temperature 36.9 C (98.4 F) 02/04/2024 10:22 AM FELT WASHING MACHINE TENDER Respiratory Rate 20 02/04/2024 10:22 AM FELT WASHING MACHINE TENDER Oxygen Saturation 98% 02/04/2024 10:22 AM FELT WASHING MACHINE TENDER Inhaled Oxygen Concentration - - Weight 87.2 kg (192 lb 4.8 oz) 02/04/2024 10:22 AM FELT WASHING MACHINE TENDER Height 160 cm (5' 3 ) 02/04/2024 10:22 AM FELT WASHING MACHINE TENDER Body Mass Index 34.06 02/04/2024 10:22 AM FELT WASHING MACHINE TENDER Plan of Treatment Health Maintenance Due Date [...] , 12/17/2019, 12/12/2018, Additional history exists Insurance [facility] MEDICARE GOLD [facility] MEDICARE GOLD Care Teams Submarine Diver Relationship Specialty Start Date End Date Iris Ireland MD [address] [place] [address] PCP - General Family Medicine 02/01/21
--- OUTSIDE RECORDS SUMMARY | 2024-05-01 09:16 | XMS_ITS | Referral Summary ---
Author Organization [facility] [address] Address [address] [place] [address] Care Team Providers Care Ophthalmic Technologist Name Role Phone Iris Ireland MD Primary Care Provider [phone] Encounters Date Type Department Care Team Description 02/04/2024 10:15 AM IN CLASSROOM TUTOR Office Visit [facility] Medical Group Convenient Care at [address] [address] Anamika Alanis NP Open wound [...] on file Legal Sex Female 10:16 AM IN CLASSROOM TUTOR Gender Identity Not on file Sexual Orientation Not on file Last Filed Vital Signs Vital Sign Reading Time Taken Comments Blood Pressure 111/75 02/04/2024 10:22 AM IN CLASSROOM TUTOR Pulse 76 02/04/2024 10:22 AM IN CLASSROOM TUTOR Temperature 36.9 C (98.4 F) 02/04/2024 10:22 AM IN CLASSROOM TUTOR Respiratory Rate 20 02/04/2024 10:22 AM IN CLASSROOM TUTOR Oxygen Saturation 98% 02/04/2024 10:22 AM IN CLASSROOM TUTOR Inhaled Oxygen Concentration - - Weight 87.2 kg (192 lb 4.8 oz) 02/04/2024 10:22 AM IN CLASSROOM TUTOR Height 160 cm (5' 3 ) 02/04/2024 10:22 AM IN CLASSROOM TUTOR Body Mass Index 34.06 02/04/2024 10:22 AM IN CLASSROOM TUTOR Plan of Treatment Not on file Insurance AETNA MEDICARE GOLD AETNA MEDICARE GOLD Care Teams Ophthalmic Technologist Relationship Specialty Start Date End Date Iris Ireland MD [address] [place] [address] PCP - General Family Medicine 02/01/21
--- OUTSIDE RECORDS SUMMARY | 2024-05-01 09:16 | XMS_ITS | Patient Health Summary ---
Author Organization [facility] Address [address] [place] [address] Care Team Providers Care Squadron Worker Name Role Phone Unavailable Primary Care Provider Unavailabl e Note from [facility],non-owned Affiliates and Associated Physician Practices is amultiple site organization consisting of ambulatory clinics and hospital sitesin [place], [place], [place] and [place]. This disclosure is being madepursuant to the Care Everywhere program and may not contain all information available regarding this patient. Last updated 17.[facility] Social History Tobacco Use Types Packs/Day Years Used Date Smoking Tobacco: Never Assessed Sex and Gender Information Value Date Recorded Sex Assigned at Not on file Gender Identity Not on file Sexual Orientation Not on file Procedures * DERMPATH SLIDE CONSULT(Performed 12/28/2022) Results * DERMPATH SLIDE CONSULT (12/28/2022 12:00 AM CDT) Case Report Dermatopathology Report Case: [id number] Authorizing Provider: Mariam Alas Collected: 12/28/2022 12:00 AM Ordering Location: [facility] DermPath Lab Received: 12/28/2022 05:13 PM Pathologist: Bonny Mix MD Specimen: Skin, [id number], right upper back lesion [id number], right lower back lesion 3 3:16 PM CDT DERMATOPATHOLOGY LABORATORY Final Diagnosis Specimen A1. [id number], right upper back lesion: JUNCTIONAL MELANOCYTIC PROLIFERATION; PRESENT AT MARGIN (D48.5) (see microscopic description and comment) Specimen A2: [id number], right lower back lesion: SEBORRHEIC KERATOSIS, MACULAR (L82.1) 3 3:16 PM CDT DERMATOPATHOLOGY LABORATORY Clinical History Materials received from: [place] [id number] [facility] [address] [place] [address] P [phone] A1: Received at the request of Dr Mariam Alas are 2 slides and 1 block labeled [id number]. (H&E 1-2). Outside diagnosis: Irritated junctional nevus, the lesion involves the peripheral margin, A2: Received at the request of Dr Mariam Alas are 2 slides and 1 block labeled [id number]. (H&E 1-2) Outside diagnosis: Pigmented seborrheic keratosis, the lesion appears completley excised. Any additional sections, special stains or immunohistochemical stains performed by our laboratory will be kept here on file. 3 3:16 PM [facility] DERMATOPATHOLOGY LABORATORY Microscopic Description Specimen A1. [id number], right upper back lesion: Sections show a junctional melanocytic proliferation. There is a lentiginous proliferation of melanocytes between irregular nests. Scattered melanocytes show evidence of upward migration within the epidermis. MART-1/Melan-A immunohistochemical stain performed at [facility] Dermatopathology highlights the melanocytes as above. [...] who agrees with the diagnosis. Specimen A2: [id number], right lower back lesion: Sections show a relatively broad, flat proliferation of small keratinocytes. The surface is gently papillated, and there is increased basilar pigmentation. MART-1/Melan-A immunohistochemical stain performed at [facility] Dermatopathology fails to highlight a melanocytic proliferation. Additional deeper sections were obtained and reviewed. 3:16 PM [facility] DERMATOPATHOLOGY LABORATORY Disclaimer An external and internal positive and negative controls are appropriate for the histochemical, immunohistochemical and immunofluorescence stain(s) in this case (if any), except where stated explicitly. The performance characteristics of the stain(s) cited in this report were developed and its performance characteristic determined by the Dermatopathology Laboratory at [facility], directed by Dr. Bi Mcelroy. These tests need not be, and therefore are not, approved by the [place] Food and Drug Administration. The tests are used for clinical purposes. Billing Codes Specimen Charges Stain Charges 51258 1 60933 30747 1 1 3 3:16 PM CDT DERMATOPATHOLOGY LABORATORY Embedded Images 3 3:16 PM CDT DERMATOPATHOLOGY LABORATORY Pathology/Cytolog y TISSUE SPECIMEN FROM SKIN / Unknown 12/28/2022 12/28/2022 5:13 PM CDT Mariam Alas LAB - PATHOLOGY/CYTO LOGY ORDERABLES DERMATOPATHOLOGY LABORATORY [facility] - Department of Dermatology [facility] Medicine [address] [place] [address], [address] [phone]
--- OUTSIDE RECORDS SUMMARY | 2024-05-01 09:16 | XMS_ITS | Referral Summary ---
Author Organization [facility] Address [address] [place] [address] Care Team Providers Care Culinary Instructor Name Role Phone Unavailable Primary Care Provider Unavailabl e Source Comments [facility],non-owned Affiliates and Associated Physician Practices is amultiple site organization consisting of ambulatory clinics and hospital sitesin [place], [place], [place] and [place]. This disclosure is being madepursuant to the Care Everywhere program and may not contain all information available regarding this patient. Last updated 17.[facility] [employer] Social History Tobacco Use Types Packs/Day Years Used Date Smoking Tobacco: Never Assessed Sex and Gender Information Value Date Recorded Sex Assigned at Not on file Gender Identity Not on file Sexual Orientation Not on file Plan of Treatment Not on file
== END 2024-05-01 08:40 | disposition home or self-care (01) ==
PROVIDERS: PCP Family Medicine; Visit Provider Nurse Practitioner Family
DX: Z12.31 Encounter for screening mammogram for malignant neoplasm of breast (principal); M85.89 Other specified disorders of bone density and structure, multiple sites; Z78.0 Asymptomatic menopausal state
CPT/HCPCS: 77063; 77067; 77080

== ENCOUNTER 2025-02-27 07:45 | Outpatient (CLI) | payer MEDICARE, SELFPAY ==
--- NOTE | 2025-02-27 08:04 | ECHO_ITS ---
Patient Info Name: Eulalia Lisa Age: 69 years : 1955 Gender: Female Ht: 63 in Wt: 190 lbs BSA: 1.99 m2 HR: 62 bpm BP: 162 / 85 mmHg Heart Rhythm: Sinus Rhythm Technical Quality: Fair Exam Date: 02/27/2025 8:13 AM Patient Status: O Admit Date: 02/27/2025 Exam Type: CA echo doppler color flow Complete two-dimensional, color flow and Doppler transthoracic echocardiogram is performed. Host And Hostess: Ani Jarrett Attending Provider: Winsome Chan Summary 1. Complete two-dimensional, color flow and Doppler transthoracic echocardiogram is performed. 2. Left ventricular chamber dimension is normal. 3. Left ventricular systolic function is normal, estimated at 60-65. 4. The left ventricular diastolic function is grade I diastolic dysfunction. 5. E/e' 9 is minimally elevated. 6. Left atrial chamber dimension is mildly enlarged. 7. There is mild aortic valve sclerosis. 8. There is trace mitral valve regurgitation. 9. There is trace tricuspid valve regurgitation. 10. No pulmonary hypertension, estimated pulmonary arterial systolic pressure is 27 mmHg. Left Ventricle E/e' 9 is minimally elevated. Left ventricular chamber dimension is normal. Left ventricular systolic function is normal, estimated at 60-65. The left ventricular diastolic function is grade I diastolic dysfunction. Right Ventricle Right ventricular chamber dimension is normal. Right ventricular systolic function is normal and with normal TAPSE 2.1 cm. Left Atria Left atrial chamber dimension is mildly enlarged. Right Atria Right atrial chamber dimension is normal. Aortic Valve The aortic valve is trileaflet. There is mild aortic valve sclerosis. There is no aortic valve stenosis. There is no aortic valve regurgitation. Pulmonic Valve There is no pulmonic regurgitation. Mitral Valve There is no mitral valve stenosis. There is trace mitral valve regurgitation. Tricuspid Valve There is trace tricuspid valve regurgitation. No pulmonary hypertension, estimated pulmonary arterial systolic pressure is 27 mmHg. Pericardium/Pleural There is no pericardial effusion. Inferior Vena Cava Normal inferior vena cava with >50% collapse upon inspiration consistent with normal right atrial pressure, 5 mmHg. Aorta The aortic root size at the sinus of Valsalva is normal. Left Ventricular Outflow Tract Name Value Normal LVOT 2D LVOT Diameter 2.0 cm LVOT Doppler LVOT Peak Velocity 124 cm/s LVOT Peak Gradient 6 mmHg LVOT Mean Gradient 3 mmHg LVOT VTI 28 cm LVOT VTI/AV VTI Ratio 0.7 LVOT Stroke Volume 85 ml LVOT CO 4.7 l/min LVOT CI 2.3 l/min/m2 Pulmonic Valve Name Value Normal RVOT Doppler RVOT Peak Velocity 61 cm/s RVOT Peak Gradient 1 mmHg PV Doppler PV Peak Velocity 96 cm/s PV Peak Gradient 4 mmHg Mitral Valve Name Value Normal MV Diastolic Function MV E Peak Velocity 90 cm/s MV A Peak Velocity 96 cm/s MV E/A 0.9 MV Decel Time (PW) 251 ms MV Annular TDI MV E/e' (Septal) 9.3 Tricuspid Valve Name Value Normal TV Regurgitation Doppler TR Peak Velocity 232 cm/s TR Peak Gradient 22 mmHg Estimated PAP/RSVP RA Pressure 5 mmHg <=5 PA Systolic Pressure 27 mmHg <36 RV Systolic Pressure 27 mmHg <36 TV Annular TDI TV Lateral Teresa s' Velocity 9.4 cm/s >=9.5 Aorta Name Value Normal Ascending Aorta Ao Root Diameter (MM) 3.0 cm Ao Root Diam Index (MM) 1.5 cm/m2 Aortic Valve Name Value Normal AV Doppler AV Peak Velocity 189 cm/s AV Peak Gradient 14 mmHg AV Mean Gradient 7 mmHg AV VTI 39 cm AV Area (Cont Eq VTI) 2.2 cm2 >=3.0 AV Area (Cont Eq Abner) 2.0 cm2 AV DI (Anber) 0.65 AV Regurgitation 2D LVOT Area 3.0 cm2 Ventricles Name Value Normal LV Dimensions 2D/MM IVS Diastolic Thickness (2D) 0.7 cm 0.6-1.0 LVID Diastole (2D) 5.2 cm 3.8-5.2 LVIW Diastolic Thickness (2D) 0.7 cm 0.6-0.9 LVID Systole (2D) 3.0 cm 2.2-3.5 LVOT Diameter 2.0 cm LV Mass (2D Cubed) 117.33 g 67.00-162.00 LV Mass Index (2D Cubed) 59 g/m2 43-95 Relative Wall Thickness (2D) 0.27 <=0.42 LV Fractional Shortening/Ejection Fraction 2D/MM LV Fractional Shortening (2D) 41 % 27-45 LV EF (2D Teichholz) 72 % LV Diastolic Volume (4C MOD) 64 ml LV EF (4C MOD) 72 % LV Diastolic Volume (2C MOD) 71 ml LV EF (2C MOD) 72 % LV Diastolic Volume (BP MOD) 69 ml 46-106 LV Diastolic Volume Index (BP MOD) 34 ml/m2 29-61 LV Systolic Volume (BP MOD) 19 ml 14-42 LV Systolic Volume Index (BP MOD) 10 ml/m2 8-24 LV EF (BP MOD) 72 % 54-74 LV Diastolic Length (4C) 7.5 cm LV Systolic Length (4C) 5.9 cm LV Stroke Volume (4C MOD) 46 ml Atria Name Value Normal LA Dimensions LA Dimension (MM) 4.2 cm 2.7-3.8 LA Volume (4C A-L) 55 ml LA Volume (BP A-L) 52 ml RA Dimensions RA Area (4C) 13.7 cm2 <=18.0 Report Signatures
== END 2025-02-27 07:46 | disposition home or self-care (01) ==
PROVIDERS: PCP Nurse Practitioner Family; Visit Provider Nurse Practitioner Family
DX: I10 Essential (primary) hypertension (principal); R01.1 Cardiac murmur, unspecified
CPT/HCPCS: 93306